=== PATIENT | male | born 1955 | race Hispanic/Latino ===

== ENCOUNTER → 2018-10-18 10:18 | Outpatient (CLI) | payer BC, SELFPAY ==
[2018-10-18 09:52] VITALS: BMI 24.8
--- NOTE | 2018-10-18 10:58 | EKG12_ITS ---
Test Reason : HYPERTENSION Blood Pressure : / mmHG Vent. Rate : 080 BPM Atrial Rate : 080 BPM P-R Int : 154 ms QRS Dur : 138 ms QT Int : 414 ms P-R-T Axes : 047 -26 150 degrees QTc Int : 477 ms Normal sinus rhythm Left bundle branch block Abnormal ECG Confirmed by IAIN STANTON ([id number]), art editor IRWIN SELBY ([id number]) on 10/24/2018 2:28:13 PM Referred By: Sandra Barahona Confirmed By:IAIN STANTON
[2018-10-18 12:48] LABS: Absolute Lymphocyte Count 1.09 X10^3/uL (0.83-4.51); Absolute Neutrophil Count 5.2 X10^3/uL (2.0-7.7); Basophil# 0.05 X10^3/uL; Basophil% 0.7 % (0-1); Eosinophil# 0.45 X10^3/uL; Eosinophils% 6.2 % (0-5); Hematocrit 46.8 % (40-54); Hemoglobin 15.6 g/dL (13.0-16.5); Lymphocyte # 1.09 X10^3/ul (4.0); Mean Corp Hgb Conc 33.3 g/dL (32-36); Mean Corpuscular Hgb 29.1 pg (27.0-32.0); Mean Corpuscular Volume 87.3 fL (80-94); Mean Platelet Vol. 11.7 fl (6.2-12.0); Monocyte# 0.47 X10^3/uL; Monocyte% 6.5 % (0-10); NRBC Flagged by Analyzer 0 % (0-5); Neutrophil # 5.17 X10^3/uL (2.7-7.7); Neutrophil % 71.3 % (47-70); Platelet Count 188 K/mm3 (150-450); RBC Distribution Width CV 14.2 % (11.6-14.6); RBC Distribution Width SD 44.6 fl (35.1-43.9); Red Blood Count 5.36 M/mm3 (4.6-6.2); White Blood Count 7.3 K/mm3 (4.4-11.0)
[2018-10-18 13:19] LABS: Microalbumin,Random Urine 62.4 mg/L (NO RANGE EST.); Microalbumin:Creatinine Ratio 61.8 mg/g CRE (<30 mg/g CRE)
[2018-10-18 13:25] LABS: ALB/GLOB Ratio 0.9 RATIO (0.9-2.4); AST(SGOT) 20 U/L (15-37); Alanine Aminotransfer ALT/SGPT 53 U/L (16-61); Albumin, Serum 3.6 g/dL (3.2-5.0); Alkaline Phosphatase 123 U/L (45-117); Anion Gap 6 (5-15); BUN 10 mg/dL (7-18); BUN/Creat Ratio 11.6 RATIO (10-20); Chloride 105 mmol/L (98-107); Cholesterol 180 mg/dL (200); Creatinine, Serum 0.86 mg/dL (0.70-1.30); EST Glomerular Filtration Rate 95 mL/min (>60); Est Glom Filt Rate - Afr Amer 115 mL/min (>60); Globulin 4.1 g/dL (2.2-4.2); Glucose 148 mg/dL (74-106); High Density Lipoprotein 56 mg/dL; Protein, Total 7.7 g/dL (6.4-8.2); Sodium Level 138 mmol/L (136-145); Triglycerides 94 mg/dL; Very Low Density Lipoprotein 19 mg/dL (5-40)
== END ==
PROVIDERS: Family Provider Internal Medicine; PCP Internal Medicine; Referring Provider Internal Medicine; Visit Provider Internal Medicine
DX: I10 Essential (primary) hypertension (principal); E11.9 Type 2 diabetes mellitus without complications
CPT/HCPCS: 36415; 80053; 80061; 82043; 82570; 85025; 93005

== ENCOUNTER → 2018-10-21 12:45 | Outpatient (CLI) | payer BC, SELFPAY ==
[2018-10-18 09:52] VITALS: BMI 24.8
--- NOTE | 2018-10-21 12:49 | ECHOD_ITS ---
Version 2 Reason For Study: HYPERTENSION Procedure This was a 2D Doppler, Color Flow transthoracic echocardiogram. Exam performed in department. Left Ventricle Normal LV size. Concentric left ventricular hypertrophy. The estimated ejection fraction is 50-55 %. Diastolic function is indeterminate. No regional wall motion abnormalities noted. Right Ventricle Normal RV size. Normal systolic function. Atria Normal left atrium. Normal right atrium. No doppler evidence for ASD. Mitral Valve There is no mitral valve stenosis. No mitral valve insufficiency. Tricuspid Valve There is no tricuspid stenosis. Unable to estimate RV systolic pressure due to inadequate jet, pulmonary artery pressure probably normal. Aortic Valve Trisinus/trileaflet aortic valve. There is no aortic stenosis. No aortic valve insufficiency. Pulmonic Valve There is no pulmonic valvular stenosis. No pulmonic valve insufficiency. Great Vessels Normal aortic root. Pericardium/Pleural No pericardial effusion. MMode/2D Measurements & Calculations LVIDd: 4.5 cm IVSd: 1.2 cm Ao root diam: 3.4 cm LVIDs: 2.9 cm LVPWd: 0.98 cm RVDd: 3.1 cm FS: 34.8 % LAV(MOD-bp): 31.3 ml LA A4 area: 11.8 cm2 LA dimension(2D): 3.0 cm LAV(MOD-bp) Indexed: 18.5 ml/m2 LAV(MOD-sp2): 30.7 ml LAV(MOD-sp4): 29.1 ml RA A4 area: 9.2 cm2 Doppler Measurements & Calculations MV E max antelmo: 69.0 cm/sec Lat Peak E' Antelmo: 3.5 cm/sec Med Peak E' Antelmo: 5.3 cm/sec MV A max antelmo: 112.0 cm/sec E/E' lat: 19.8 E/E' med: 13.0 MV E/A: 0.62 Ao V2 max: 120.6 cm/sec LV V1 max: 92.0 cm/sec PA V2 max: 113.9 cm/sec Ao max P.8 mmHg LV V1 max P.4 mmHg Interpretation Summary The estimated ejection fraction is 50-55 %. Diastolic function is indeterminate. Concentric left ventricular hypertrophy. Ordering Physician: Sandra Barahona Referring Physician: Sandra Barahona Performed By: Selma Garcia, SREE, RVT
== END ==
PROVIDERS: Family Provider Internal Medicine; PCP Internal Medicine; Referring Provider Internal Medicine; Visit Provider Internal Medicine
DX: I10 Essential (primary) hypertension (principal); E11.9 Type 2 diabetes mellitus without complications
CPT/HCPCS: 93306

== ENCOUNTER → 2019-01-11 11:35 | Outpatient (CLI) | payer MEDICARE, BC, SELFPAY ==
[2019-01-11 11:35] VITALS: BMI 25.4
[2019-01-11 14:21] LABS: Anion Gap 5 (5-15); BUN 9 mg/dL (7-18); BUN/Creat Ratio 9.9 RATIO (10-20); Calcium,Total 8.3 mg/dL (8.5-10.1); Chloride 105 mmol/L (98-107); Creatinine, Serum 0.91 mg/dL (0.70-1.30); EST Glomerular Filtration Rate 89 mL/min (>60); Est Glom Filt Rate - Afr Amer 108 mL/min (>60); Glucose 164 mg/dL (74-106); Potassium 3.7 mmol/L (3.5-5.1); Sodium Level 139 mmol/L (136-145)
[2019-01-11 14:28] LABS: Hemoglobin A1c 7.2 % (4.2-6.3)
== END ==
PROVIDERS: Family Provider Internal Medicine; PCP Internal Medicine; Visit Provider Internal Medicine
DX: I10 Essential (primary) hypertension (principal); E11.9 Type 2 diabetes mellitus without complications
CPT/HCPCS: 36415; 80048; 83036

== ENCOUNTER 2019-12-04 14:30 | Inpatient (IN) | payer MEDICARE, BC, SELFPAY ==
[2019-01-11 11:35] VITALS: BMI 25.4
[2019-12-04] VITALS (7 sets, daily range): BP systolic 171–202; BP diastolic 93–122; PULSE 74–100; RESP 14–18; TEMP 35.6–36.7; O2SAT 96–99; BMI 21.4; BMI 22.6; BMI 22.7
--- NOTE | 2019-12-04 15:04 | EKG12_ITS ---
Test Reason : DIZZINESS Blood Pressure : / mmHG Vent. Rate : 072 BPM Atrial Rate : 072 BPM P-R Int : 154 ms QRS Dur : 150 ms QT Int : 442 ms P-R-T Axes : 044 -21 152 degrees QTc Int : 483 ms Normal sinus rhythm Left bundle branch block Abnormal ECG Confirmed by GE HAWLEY, FRANTZ ([id number]), development editor VILMA PALMA ([id number]) on 12/06/2019 1:44:10 PM Referred By: GINGER Confirmed By:FRANTZ CAROLINA MD
--- NOTE | 2019-12-04 15:04 | CT_ITS ---
STUDY: CT BRAIN WITHOUT CONTRAST REASON FOR EXAM: Male, 64 years old. VISION CHANGE and amp; DIZZINESS X2 HOURS -- +DIAB/HTN-RX CONTROLLED RADIATION DOSAGE (If Supplied By Facility): CTDIvol = ( 44.99 ) mGy, DLP = ( 779.24 ) mGycm TECHNIQUE: Transaxial CT imaging of the brain was performed without administration of intravenous contrast material. Individualized dose optimization techniques were used for this CT. COMPARISON: Comparison is made with prior study dated 02/10/2014. FINDINGS: Normal soft tissue structures. Normal calvarium. Normal size ventricles and extra-axial spaces for the patient''s age. There are areas of decreased attenuation within the white matter tracts of the supratentorial brain, consistent with microvascular disease changes. There are small punctate calcifications of the basal ganglia which are seen in the aging brain as a normal variant. There now is evidence of a small lacunar infarct in the left basal ganglion which was not present on prior study. Normal brainstem. Normal cerebellum. There is no intracranial hemorrhage. There are no findings of an acute ischemic infarction. Partial opacification of the inferior aspect of the right maxillary sinus and right sphenoid sinus. CT/Brain/Head without Contrast IMPRESSION: Normal unenhanced CT scan of the brain. Since prior study, there is evidence of a small lacunar infarct in the left basal ganglia. Electronically Signed: Anurag Chavira, at 16:03 EDT , Service support ,
--- NOTE | 2019-12-04 15:06 | ED.DCSUM_ITS ---
History of Present Illness Chief Complaint: Dizziness Informant: Patient Onset: Yesterday Context: Gradual Onset Timing: Intermittent Current Severity: Moderate Maximum Severity: Moderate Narrative: The patient is a 64-year-old male with medical history significant for hypertension and diabetes who does not take any medications the presents to the emergency department with dizziness and blurred vision. Patient states that for the past 2 days, he has had dizziness. He describes it as lightheadedness. He states that his vision is also been intermittently blurred starting yesterday but has not resolved completely. He does not think he is had headache. He denies any difficulty with speech or swallowing. He denies any change in balance. The patient has reported history of diabetes and hypertension, but takes no medications. He also has history of cataract that has affected his vision in the past. He denies any head trauma. He denies any nausea or vomit ing. Prior similar symptoms: Yes Recent Illness/Hospitalization: No Past Medical History - Allergies and Home Meds Allergies/Adverse Reactions: Allergies No Known Allergies Allergy (Verified 01/11/19 11:12) Primary Care Physician: Sandra Barahona MD [Primary Care Provider] - Prior records reviewed: Yes Past Medical History: - - Diabetes, hypertension Smoking Status: Former smoker Review of Systems General: Denies: Chills, Fever, Sweats Eyes: Reports: Blurred Vision - bilaterally. Denies: Visual changes - bilaterally, Diplopia ENT: Denies: Rhinorrhea, Sore throat Cardiovascular: Denies: Chest pain, Palpitations Respiratory: Denies: Dyspnea, Cough, Dyspnea on exertion Gastrointestinal: Denies: Abdominal pain, Nausea, Vomiting, Diarrhea, Melena, Hematochezia Genitourinary: Denies: Dysuria, Hematuria, Frequency Musculoskeletal: Denies: Back pain, Extremity Pain Skin: Denies: Rash, Wounds Neurological: Denies: Headache, Weakness, Numbness Physical Exam Vital Signs/Narrative: Vital Signs Temp Pulse Resp BP Pulse Ox 12/04/19 14:42 181/102 H 12/04/19 14:33 96.0 F L 77 18 194/109 H 99 Inital Vital Signs reviewed: Yes General: Well nourished, Well developed, No Acute Distress Head: Normocephalic, Atraumatic Eyes: Perrl, EOMI ENT: Moist mucous membranes, No rhinorrhea Neck: Supple, Nontender Cardiovascular: Regular rate, Regular rhythm, No murmurs Respiratory: No distress, CTA bilaterally, Chest nontender Abdomen: Soft, Nontender, Nondistended, Normal bowel sounds Back: Nontender, Normal Inspection Extremities: Nontender, No edema Skin: Normal color, No rash Neurological: Alert, Oriented x3, Cranial nerves II-XII grossly intact, Normal Strength, Normal Sensation Psychological: Normal affect, Normal Mood Diagnostic/Tx/Re-eval Clinical Impression(s) from Imaging Studies Brain CT 12/04/19 15:04 IMPRESSION: Normal unenhanced CT scan of the brain. Since prior study, there is evidence of a small lacunar infarct in the left basal ganglia. Electronically Signed: Anurag Coleyval, at 16:03 EDT , Service support , Abnormal Lab Results 12/04/19 12/04/19 15:20 15:20 WBC 7.5 RBC 5.52 Hgb 16.4 Hct 48.8 MCV 88.4 MCH 29.7 MCHC 33.6 RDW Std Deviation 43.4 RDW Coeff of Lacey 13.4 Plt Count 222 MPV 11.7 Immature Gran % (Auto) 0.400 Neut % (Auto) 68.9 Lymph % (Auto) 18.1 L [place] % (Auto) 8.4 Eos % (Auto) 3.5 Baso % (Auto) 0.7 Absolute Neuts (auto) 5.2 Absolute Lymphs (auto) 1.36 Nucleated RBC % 0 Sodium 138 Potassium 4.5 Chloride 103 Carbon Dioxide 28.0 Anion Gap 7 BUN 17 Creatinine 1.00 Estim Creat Clear Calc 58.27 Est GFR (MDRD) Af Amer 96 Est GFR (MDRD) Non-Af 80 BUN/Creatinine Ratio 17.0 Glucose 85 Calcium 8.9 Total Bilirubin 0.60 AST 40 H ALT 40 Alkaline Phosphatase 106 Total Protein 8.4 H Albumin 3.8 Globulin 4.6 H Albumin/Globulin Ratio 0.8 L - Rhythm Strip Rhythm Strip: Sinus Rhythm Rate: 80 Ectopy: None - EKG Initial EKG Interpretation: Sinus Rhythm, No Acute Injury Pattern, LBBB Prior: Unchanged - Medical Decision Making The patient presents with vision difficulty. His eyes are reactive. He does not have a [place] visual field cuts. He was hypertensive on arrival. Metabolic work-up was pursued. EKG demonstrates a left bundle which is unchanged. He has been having the symptoms for 24 hours. Metabolic work-up was relatively unremarkable. Patient underwent CT which shows evidence of a basal ganglier in farct. The patient is not a TPA candidate given the duration of his symptoms. I do feel that he would benefit from admission for stroke work-up. The patient was discussed with the hospitalist. Impression 1. Visual change ED Disposition - Plan for ED Patient: Referrals: Sandra Barahona MD [Primary Care Provider] -
[2019-12-04] MEDS: 0.9% Normal Saline 1,000 ML 1000 ML IV (15:37)
[2019-12-04 15:49] LABS: Absolute Lymphocyte Count 1.36 X10^3/uL (0.83-4.51); Absolute Neutrophil Count 5.2 X10^3/uL (2.0-7.7); Basophil# 0.05 X10^3/uL; Basophil% 0.7 % (0-1); Eosinophil# 0.26 X10^3/uL; Eosinophils% 3.5 % (0-5); Hematocrit 48.8 % (40-54); Hemoglobin 16.4 g/dL (13.0-16.5); Lymphocyte # 1.36 X10^3/ul (4.0); Lymphocyte % 18.1 % (19-41); Mean Corp Hgb Conc 33.6 g/dL (32-36); Mean Corpuscular Hgb 29.7 pg (27.0-32.0); Mean Corpuscular Volume 88.4 fL (80-94); Mean Platelet Vol. 11.7 fl (6.2-12.0); Monocyte# 0.63 X10^3/uL; Monocyte% 8.4 % (0-10); NRBC Flagged by Analyzer 0 % (0-5); Neutrophil # 5.18 X10^3/uL (2.7-7.7); Neutrophil % 68.9 % (47-70); Platelet Count 222 K/mm3 (150-450); RBC Distribution Width CV 13.4 % (11.6-14.6); RBC Distribution Width SD 43.4 fl (35.1-43.9); Red Blood Count 5.52 M/mm3 (4.6-6.2); White Blood Count 7.5 K/mm3 (4.4-11.0)
[2019-12-04 16:11] LABS: ALB/GLOB Ratio 0.8 RATIO (0.9-2.4); AST(SGOT) 40 U/L (15-37); Alanine Aminotransfer ALT/SGPT 40 U/L (16-61); Albumin, Serum 3.8 g/dL (3.2-5.0); Alkaline Phosphatase 106 U/L (45-117); Anion Gap 7 (5-15); BUN 17 mg/dL (7-18); Calcium,Total 8.9 mg/dL (8.5-10.1); Chloride 103 mmol/L (98-107); EST Glomerular Filtration Rate 80 mL/min (>60); Est Glom Filt Rate - Afr Amer 96 mL/min (>60); Estimated Creatinine Clearance 58.27 ml/min; Globulin 4.6 g/dL (2.2-4.2); Glucose 85 mg/dL (74-106); Potassium 4.5 mmol/L (3.5-5.1); Protein, Total 8.4 g/dL (6.4-8.2); Sodium Level 138 mmol/L (136-145)
--- NOTE | 2019-12-04 16:30 | NURSING ---
PCU OBS VISUAL DISTURBANCE [facility]
--- NOTE | 2019-12-04 16:47 | HP.PCM_ITS ---
Problem List (1) Hypertensive urgency Status: Acute (2) Hypertension Status: Chronic (3) Type 2 diabetes mellitus Status: Chronic (4) Cataract Status: Chronic History of Present Illness Date of Admission: 12/04/19 Chief Complaint: Dizziness, blurry vision. The patient is a 64 year old M with past medical history as mentioned above presented to the emergency room because of dizziness and blurry vision. His symptoms started yesterday with dizziness, described as lightheaded, persistent, associated with blurry vision of both eyes, did not relieve since yesterday and no other aggravating or relieving factors. He denied headache, slurred speech, numbness or tingling. He denied focal arm or leg weakness. He denied any gait problems or balance issues. He had a history of hypertension and diabetes but he did not take his medication for a long time. Upon review of his chart, patient saw his PCP back on January, and his blood pressure was not under control, dose of HCTZ was increased and was started on losartan. At that time, his hemoglobin A1c was 7.3% and he was continued on Metformin. Apparently, patient is not taking his medication and he is not compliant. In the emergency department, his blood pressure was high elevated, systolic was up to 194/109. Other vital signs were stable. Routine blood work was unremarkable. LFT was unremarkable. EKG revealed normal sinus rhythm, LBBB which is chronic, no acute changes. CT scan brain was normal but they mentioned that since prior study, there is evidence of small left pontine infarct of the left basal ganglia, age was not documented. He is being admitted for hypertensive urgency, noncompliance and suspected stroke. Past Medical History Past Medical History (Chronic Problems): Chronic Problems (Last Updated 01/11/19 @ 11:13 by Magaly Salinas) Hypertension (Chronic) Type 2 diabetes mellitus (Chronic) Cataract (Chronic) Medical History: Medical History (Last Updated 01/11/19 @ 11:13 by Magaly Salinas) Hypertension (Chronic) I10 Cataract (Chronic) H26.9 Allergies No Known Allergies Allergy (Verified 01/11/19 11:12) Home Medications: Ambulatory Orders Medication Instructions Recorded NK 12/04/19 Surgical History: Surgical History (Last Reviewed 01/11/19 @ 11:13 by Magaly Salinas) No history of previous surgery Surgical History: no surgical history Psychiatric History: No pertinent psych hx Lives: Alone Smoking Status: Former smoker Alcohol: None Drugs: None - *Family History Maternal Family History: Family History (Last Reviewed 12/04/19 @ 16:[address] Cristofer Louie MD) Sister Diabetes History Items: No pertinent history Paternal Family History: Family History (Last Reviewed 12/04/19 @ 16:[address] Cristofer Luoie MD) Sister Diabetes History Items: No pertinent history Review of Systems Constitutional: Denies: Anorexia, Chills, Fever, Weakness Eyes: Reports: Blurred vision. Denies: Double vision, Drainage, Redness HEENT: Denies: Difficulty Hearing, Ear Pain, Eye Pain, Nasal bleeding, Sore Throat Cardiovascular: Reports: Light Headedness. Denies: Chest Pain, Chest Pressure, Palpitations, Syncope Respiratory: Denies: Cough, Pleuritic Pain, Shortness of Breath, Sputum production, Wheezing Gastrointestinal: Denies: Abdominal Pain, Constipation, Diarrhea, Nausea, Vomiting Genitourinary: Denies: Dysuria, Frequency, Hematuria Musculoskeletal: Denies: Arm Pain, Back Pain, Foot Pain Skin: Denies: Dryness, Rash Neurological: Reports: Blurred vision. Denies: Balance problems, Double vision, Change in Speech, Slurred speech, Confusion, Headaches, Incoordination, Numbness Psychiatric: Denies: Anxiety, Depression Endocrine: Denies: Change in Body Habitus, Polydipsia, Polyuria VTE Information - Inpt Only VTE Present on Admission: No VTE Mechan Device Prophylaxis: None VTE Pharm Prophylaxis ordered?: Yes - Physical Exam Vitals/I&O's: Vital Signs Temp Pulse Resp BP Pulse Ox 96.0 F L 77 18 181/102 H 99 12/04/19 14:33 12/04/19 14:33 12/04/19 14:33 12/04/19 14:42 12/04/19 14:33 Oxygen Delivery Method Room Air Weight: 125 lb Body Mass Index (BMI) 21.4 General: Alert, Oriented x3, Cooperative, No apparent distress, - - Frequent blinking. HEENT: Atraumatic, PERRLA, EOMI, Normocephalic Oral: Moist Mucosa, No Gingival or Mucosal Lesions/ Ulcerations Neck: Supple, No JVD, Negative Carotid Bruits, Trachea Midline, Thyroid Normal Size and Texture Lungs: Clear to auscultation, Normal air movement, No rhonchi, No wheeze, No rales Cardiovascular: Regular rate, Regular Rhythm, Normal S1, Normal S2, PMI Normal Abdomen: Bowel Sounds Present, Soft, Non Tender, Non-Distended, No Hepato- splenomegaly Extremities: No clubbing, No cyanosis, No edema Skin: No rashes, No breakdown Lymphatic: No Cervical, Supraclavicular, or Inguinal Adenopathy Neurological: Cranial nerves II-XII grossly intact, Motor Exam 5/5 strength throughout Psych/Mental Status: Normal Affect, Appropriate, Alert and oriented to time, place, person, mood and affect Laboratory Results 12/04/19 15:20: WBC 7.5, RBC 5.52, Hgb 16.4, Hct 48.8, MCV 88.4, MCH 29.7, MCHC 33.6, RDW Std Deviation 43.4, RDW Coeff of Lacey 13.4, Plt Count 222, MPV 11.7, Immature Gran % (Auto) 0.400, Neut % (Auto) 68.9, Lymph % (Auto) 18.1 L, [place] % (Auto) 8.4, Eos % (Auto) 3.5, Baso % (Auto) 0.7, Absolute Neuts (auto) 5.2, Absolute Lymphs (auto) 1.36, Nucleated RBC % 0 12/04/19 15:20: Sodium 138, Potassium 4.5, Chloride 103, Carbon Dioxide 28.0, Anion Gap 7, BUN 17, Creatinine 1.00, Estim Creat Clear Calc 58.27, Est GFR (MDRD) Af Amer 96, Est GFR (MDRD) Non-Af 80, BUN/Creatinine Ratio 17.0, Glucose 85, Calcium 8.9, Total Bilirubin 0.60, AST 40 H, ALT 40, Alkaline Phosphatase 106, Total Protein 8.4 H, Albumin 3.8, Globulin 4.6 H, Albumin/Globulin Ratio 0.8 L Clinical Impression(s) from Imaging Studies Brain CT 12/04/19 15:04 IMPRESSION: Normal unenhanced CT scan of the brain. Since prior study, there is evidence of a small lacunar infarct in the left basal ganglia. Electronically Signed: Anurag Chavira, at 16:03 EDT , Service support , Assessment/Plan All Active Problems (Last Updated 01/11/19 @ 11:13 by Magaly Salinas) Hypertensive urgency (Acute) This is a 64 years old male patient presented to the emergency room because of dizziness and blurry vision, found to have highly elevated blood pressure and also found to have small lacunar infarct of the left basal ganglia with unknown acuity and he is being admitted for evaluation and treatment. #1 hypertensive urgency: Blood pressure was highly elevated in the ED. patient does have a history of hypertension and apparently, he saw his PCP on January,, HCTZ was increased and started on losartan but patient has not been taking his medication. EKG reviewed, LBBB is chronic, no acute changes. Plan: Admit to PCU, cardiac monitoring, troponin x1, start lisinopril and HCTZ, IV hydralazine as needed, gentle IV fluids for hydration, repeat CBC and BMP tomorrow morning, PT OT evaluation and treatment. #2 dizziness/blurry vision/small lacunar infarct of the left basal ganglia: Without known acuity. CT scan brain reviewed. Currently, he has no focal motor deficit. Plan: NIH stroke scale, MRI brain, CTA of the head and neck, 2D echocardiogram, aspirin, Lipitor, lipid profile. #3 hypertension: Blood pressure elevated, plan as above. #4 type 2 diabetes mellitus: Patient was supposed to be on Metformin. Hemoglobin A1c was 7.2% on January,. Plan: Accu-Cheks, insulin sliding scale, hemoglobin A1c. May need to start Metformin after CTA done. #5 DVT prophylaxis: Subcu Lovenox. This note was generated with Sharetribe[employer] software. It may contain incorrect words, spelling, and punctuation that were not noted in checking the note before signing. Inpatient E&M: 46298 Init Hosp L3
--- NOTE | 2019-12-04 17:01 | NURSING ---
124 [facility] HYPERTENSIVE [facility], VISION CHANGES
[2019-12-04] MEDS: hydrALAZINE 20 MG/ML Vial 10 MG IV (17:13)
[2019-12-04] MEDS: Lisinopril 10 MG Tablet PO (18:54)
--- NOTE | 2019-12-04 18:58 | MRI_ITS ---
STUDY: MRI BRAIN WITHOUT CONTRAST REASON FOR EXAM: Male, 64 years old. small lacunar infarct,dizzy, blurred vision, constant blinking eyes TECHNIQUE: Standardized multiplanar fat and water weighted pulse sequences were obtained. COMPARISON: CTA same day FINDINGS: Normal size of the ventricles and extra-axial spaces for the patient''s age. There are a limited number of small white matter hyperintensities, distributed throughout the deep white matter tracts of the cerebral hemispheres, consistent with mild chronic white matter ischemic changes. Remote infarct in the left basal ganglia. Normal thalami. There is no extra-axial fluid accumulation. Normal flow voids within the major intracranial circulation suggesting patency by spin echo criteria. Normal sella turcica, pituitary gland, infundibular stalk, optic chiasm and hypothalamus. Normal tectal plate and pineal gland. Normal midbrain, la and medulla. Normal cerebellum. Normal basal cisterns. Normal bilateral temporal bones. Normal bilateral internal auditory canals. Right lens replacement. Right sphenoid sinus disease. Normal calvarium and skull base. Normal visualized soft tissue structures. Normal visualized upper cervical spine. MRI/Brain without Contrast IMPRESSION: No evidence of acute infarct or hemorrhage. Electronically Signed: Dio Foster MD at 22:18 EDT Tel , Service support ,
--- NOTE | 2019-12-04 18:58 | ECHOD_ITS ---
Reason For Study: TIA/CVA Procedure This was a 2D Doppler, Color Flow transthoracic echocardiogram. Contrast injection was performed. Exam performed portable in patient room. Left Ventricle Normal LV size. Mild concentric left ventricular hypertrophy. Left ventricular systolic function is lower limits of normal. The estimated ejection fraction is 50 %. Diastolic function is indeterminate. No regional wall motion abnormalities noted. Right Ventricle Normal RV size. Normal systolic function. Atria Normal left atrium. Normal right atrium. No doppler evidence for ASD. Bubble contrast study negative for right to left interatrial shunt. Mitral Valve There is no mitral annular calcification. Normal mitral valve. Mild (1+) mitral valve insufficiency. Tricuspid Valve Normal tricuspid valve. Mild tricuspid valve insufficiency. Right ventricular systolic pressure estimated to be 23 mmHg. Aortic Valve Trisinus/trileaflet aortic valve. Normal aortic valve. Trivial aortic valve insufficiency. Pulmonic Valve The pulmonic valve is not well visualized. Great Vessels Normal sized aortic root. Pericardium/Pleural No pericardial effusion. Medication Performed a rapid injection of agitated mix of 9 cc saline and 1cc air to assess for atrial septal defect. MMode/2D Measurements & Calculations LVIDd: 3.4 cm IVSd: 1.3 cm Ao root diam: 3.5 cm LVIDs: 2.2 cm LVPWd: 1.3 cm LA dimension: 3.4 cm RVDd: 3.0 cm FS: 34.6 % LAV(MOD-bp): 35.0 ml LA A4 area: 13.6 cm2 RA A4 area: 10.6 cm2 LAV(MOD-bp) Indexed: 21.4 ml/m2 LAV(MOD-sp2): 37.2 ml LAV(MOD-sp4): 32.4 ml Time Measurements MV dec time: 0.32 sec Doppler Measurements & Calculations MV E max antelmo: 58.8 cm/sec Lat Peak E' Antelmo: 5.9 cm/sec Med Peak E' Antelmo: 2.9 cm/sec MV A max antelmo: 98.7 cm/sec E/E' lat: 10.0 E/E' med: 20.2 MV E/A: 0.60 MV V2 max: 107.9 cm/sec MV P1/2t max antelmo: 72.2 cm/sec Ao V2 max: 104.2 cm/sec MV max P.7 mmHg MV P1/2t: 129.6 msec Ao max P.3 mmHg MV V2 mean: 53.5 cm/sec MV dec slope: 163.3 cm/sec2 MV mean P.4 mmHg MV V2 VTI: 32.3 cm MVA(P1/2t): 1.7 cm2 LV V1 max: 88.4 cm/sec PA V2 max: 97.3 cm/sec PI dec slope: 112.5 cm/sec2 LV V1 max P.1 mmHg TR max antelmo: 224.0 cm/sec TR max P.1 mmHg Interpretation Summary Left ventricular systolic function is lower limits of normal. The estimated ejection fraction is 50 %. Mild concentric left ventricular hypertrophy. Mild (1+) mitral valve insufficiency. Mild tricuspid valve insufficiency. Trivial aortic valve insufficiency. Right ventricular systolic pressure estimated to be 23 mmHg. Bubble contrast study negative for right to left interatrial shunt. Diastolic function is indeterminate. Ordering Physician: Cristofer Louie Referring Physician: Sandra Barahona Performed By: Kofi Harrison RCS
[2019-12-04] MEDS: 0.9% Normal Saline 1,000 ML 75 ML IV (19:15)
[2019-12-04 20:22] LABS: Cholesterol 246 mg/dL (200); High Density Lipoprotein 63 mg/dL; Triglycerides 137 mg/dL; Very Low Density Lipoprotein 27 mg/dL (5-40)
[2019-12-04 21:12] LABS: Hemoglobin A1c 6.2 % (3.8-5.6)
[2019-12-04] MEDS: Atorvastatin Calcium 80 MG Tablet PO (21:45)
--- NOTE | 2019-12-04 21:50 | CT_ITS ---
STUDY: CTA HEAD AND NECK WITH CONTRAST REASON FOR EXAM: Male, 64 years old. HYPPERTENSION. DIZZY, BLURRED VISION, AND LIGHTNEADNESS RADIATION DOSAGE (If Supplied By Facility): CTDIvol = ( 21.09 ) mGy, DLP = ( 709.63 ) mGycm TECHNIQUE: CT angiography was performed with a multi-detector CT scanner. Data acquisition was obtained from the skull base through the vertex following intravenous administration of IV 100mL [id number]-370. MIP images were reconstructed from the axial data set. Post-processing of the angiographic images was performed, with multiplanar reformation and 3D reconstruction. Individualized dose optimization techniques were used for this CT. COMPARISON: No relevant priors. FINDINGS: Normal bilateral petrous carotid arteries. Mild calcific plaquing of the right cavernous carotid artery with a normal supraclinoid bifurcation. Mild calcific plaquing of the left cavernous carotid artery with a normal supraclinoid bifurcation. Normal right A1 segments of the anterior cerebral artery. Normal left A1 segments of the anterior cerebral artery. Normal intact anterior communicating artery (ACOM). Normal bilateral A2 segments of the anterior cerebral arteries. Normal right M1 and M2 segments of the middle cerebral arteries, with a normal M1 bifurcation. Normal left M1 and M2 segments of the middle cerebral arteries, with a normal M1 bifurcation. Bilateral posterior containing arteries not visualized consistent with normal variant Normal bilateral vertebral arteries. Normal basilar artery with a normal basilar bifurcation. The visualized bilateral superior cerebellar (SCA) arteries are normal. Normal bilateral P1, P2 and visualized P3 segments of the posterior cerebral arteries. There is no demonstrated aneurysm of the [place]. There is no demonstrated abnormality of the visualized brain. AORTIC ARCH: Normal visualized aortic arch. Normal origins of the brachiocephalic, left common carotid, and left subclavian arteries. RIGHT CAROTID ARTERIES: Normal right common carotid artery (CCA). Normal right common carotid bulb. Normal origin of the right internal carotid (ICA) artery without a hemodynamically significant stenosis. Normal visualized cervical portion of the right internal carotid artery. Normal origin of the right external carotid artery (ECA). LEFT CAROTID ARTERIES: Normal left common carotid artery (CCA). Minor calcific plaquing of the left common carotid bulb. Normal origin of the left internal carotid (ICA) artery without a hemodynamically significant stenosis. Normal visualized cervical portion of the left internal carotid artery. Normal origin of the left external carotid artery (ECA). VERTEBRAL ARTERIES: The right vertebral is dominant and normal caliber. The left vertebral is smaller and terminates in PICA consistent with normal variant. CT/CTA Head AND Neck W/ Contrast IMPRESSION: Mild atherosclerotic disease. No evidence for hemodynamically significant stenosis or vascular occlusion Electronically Signed: Alfa Angulo MD at 22:08 EDT , Service support ,
[2019-12-04] MEDS: Acetaminophen 325 MG Tablet 650 MG PO (22:31)
[2019-12-04] MEDS: Zolpidem Tartrate 5 MG Tablet PO (23:51)
[2019-12-04] MEDS: Glycerin/Hypromellose/PEG400 15 ml Bottle 2 DRP EACH EYE (23:51)
[2019-12-05] VITALS (7 sets, daily range): BP systolic 131–164; BP diastolic 70–93; PULSE 67–76; RESP 16–18; TEMP 36.6–37.2; O2SAT 94–97
[2019-12-05] MEDS: Aspirin 81 MG TAB.CHEW PO (07:59)
[2019-12-05] MEDS: Lisinopril 20 MG Tablet PO (09:54)
[2019-12-05] MEDS: Enoxaparin 40 MG/0.4 ML Syringe SC (09:54)
[2019-12-05] MEDS: hydroCHLOROthiazide 12.5mg 12.5 MG PO (09:54)
--- NOTE | 2019-12-05 10:53 | CASEMGMT ---
AGATHA BARAJAS assessment: Face to Face with patient for initial transition planning/care coordination assessment. AGATHA BARAJAS introduced self and role at [facility], pt voices understanding and consents to assessment at this time. Pt is sitting up in bed in no distress at this time and easily gets up to sit on side of bed with no concerns at this time. Pt is A/Ox4 at this time and answers all questions appropriately at this time. Pt continuously is blinking eyes while this AGATHA BARAJAS in room. Care providers, pharmacy, and demographics verified at this time. 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 Presentation: Pt about 2 hours ago was dizzy and having blurred vision. Now dizziness is gone. Having blurred vision bilaterally. Denies weakness, slurred speech, no facial droop noted in triage Admitting dx: Hypertensive urgency, vision changes PCP: [place] Specialists: Pt states no current specialists. Preferred [facility]acy: [facility] Insurance: [employer] A/B, [employer] Prescription Benefit: Yes Living Will/HPOA: Pt states does not have LW/HPOA and declines AD info at this time. LNOK: None Living Arrangements: Pt states lives alone in a home and states no concerns at home at this time. Pt states is independent with ADL's and has been independent. Transportation: Pt states drives self and states no transportation concerns at this time. Pt states has not been driving lately d/t blurred vision. DME/HHC: Pt states has grab bars in shower and states no need for any further DME at this time. Pt states no hx of HHC or SNF in the past. Pt states no concerns with going home at time of discharge. Pt is retired. Pt states does not smoke cigarettes or drink ETOH. Pt states no further concerns/needs at this time. CM to follow for any further discharge planning/needs. Advised pt to ask for CM if any further questions/concerns/needs arise, voices understanding. Pt Goal: [place] AGATHA BARAJAS
--- NOTE | 2019-12-05 12:00 | DCINST_ITS ---
- Discharge Diagnoses Current Active Problems: Current Active and Chronic Problems (Last Updated 12/04/19 @ 16:[address] Cristofer Louie MD) Hypertensive urgency (Acute) Hypertension (Chronic) Type 2 diabetes mellitus (Chronic) Cataract (Chronic) You will use the following diet at home:: Cardiac Discharge Activity: Return to Normal Activity Call your doctor if you observe: Shortness of breath, Dizziness, Fainting spells, Chest pain Allergies/Adverse Reactions: Allergies No Known Allergies Allergy (Verified 01/11/19 11:12) Medications to take at Discharge Amlodipine [Norvasc] 5 mg PO DAILY #60 tab 12/05/19 Aspirin [Aspirin, Baby] 81 mg PO DAILY@0800 #60 tab.chew 12/05/19 Atorvastatin Calcium [Lipitor] 40 mg PO QHS #60 tab 12/05/19 Losartan/Hydrochlorothiazide [Losartan-Hctz 50-12.5 mg Tab] 1 ea PO DAILY #60 tab 12/05/19 metFORMIN HCl [Glucophage] 500 mg PO BIDCM #120 tab 12/05/19 The following prescriptions were given: Aspirin [Aspirin, Baby] 81 mg PO DAILY@0800 #60 tab.chew Transmission Status: Pending to [facility] #30 metFORMIN HCl [Glucophage] 500 mg PO BIDCM #120 tab Transmission Status: Pending to [facility] #[facility] Atorvastatin Calcium [Lipitor] 40 mg PO QHS #60 tab Transmission Status: Pending to [facility] #30 Losartan/Hydrochlorothiazide [Losartan-Hctz 50-12.5 mg Tab] 1 ea PO DAILY #60 tab Transmission Status: Pending to [facility] Amlodipine [Norvasc] 5 mg PO DAILY #60 tab Transmission Status: Pending to [facility] Primary Care Physician: Sandra Barahona MD [Primary Care Provider] - Please follow up with your Primary Care Physician in: 1 Week Test Results: Test results from this visit will be discussed in further detail at your follow- up appointment, if applicable. Please Follow Up With: De Andrews MD When: As scheduled, Proposed Discharge Date: 12/05/19
--- NOTE | 2019-12-05 13:58 | DS.PCM_ITS ---
<Fina Steele TAXIMETER REPAIRER - Last Filed: 12/05/19 14:05> Discharge Date and Diagnosis - Problem List Patient Problems: Active and Suspected Problems (Last Updated 12/04/19 @ 16:[address] Cristofer Louie MD) Hypertensive urgency (Acute) Date of Admission: 12/04/19 Date of Discharge: 12/05/19 - Primary Discharge Diagnosis Acute Problems: Active Problems (Last Updated 12/04/19 @ 16:[address] Cristofer Louie MD) 1. Hypertensive urgency 2. Blurred vision 3. Old lacunar infarct in the left basal ganglia 4. Type 2 diabetes mellitus 5. Hyperlipidemia 6. Noncompliance - Secondary Discharge Diagnosis Chronic Problems: Chronic Problems (Last Updated 12/04/19 @ 16:[address] Cristofer Louie MD) Hypertension (Chronic) Type 2 diabetes mellitus (Chronic) Cataract (Chronic) Hospital Course and Treatment Imaging Results: Diagnostic Data Brain CT 12/04/19 15:04 IMPRESSION: Normal unenhanced CT scan of the brain. Since prior study, there is evidence of a small lacunar infarct in the left basal ganglia. Electronically Signed: Anurag Chavira at 16:03 EDT , Service support , Brain MRI 12/04/19 18:58 IMPRESSION: No evidence of acute infarct or hemorrhage. Electronically Signed: Dio Foster MD at 22:18 EDT Tel , Service support , Head/Neck CTA 12/04/19 21:50 IMPRESSION: Mild atherosclerotic disease. No evidence for hemodynamically significant stenosis or vascular occlusion Electronically Signed: Alfa Angulo MD at 22:08 EDT , Service support , Operations: None Procedures: 2-D Echocardiogram Summary of Care Provided: The patient is a 64 year old M admitted 12/04/2019 due to dizziness and blurred vision. 1. Hypertensive urgency-due to noncompliance with previously prescribed blood pressure regimen. Initiated on previous regimen of amlodipine, losartan/hydrochlorothiazide. Patient will need close follow-up with primary care physician for further blood pressure monitoring. Echocardiogram October 2018 demonstrated an EF of 50 to 55%. Echocardiogram repeated during admission however patient anxious to return home and did not want to wait for results. Follow-up with PCP within 1 week. 2. Blurred vision-MRI of brain without acute infarct. Patient has chronic cataracts. No evidence of acute conjunctivitis. Patient able to state appropriate images and held up numbers, no double vision. Eye appointment set up for this at [facility]. 3. Old lacunar infarct in the left basal ganglia-MRI of brain demonstrates remote infarct in the left basal ganglia. No acute infarct. Continue aspirin, statin at discharge. 4. Type 2 diabetes mellitus-previously on Metformin 500 mg twice a day which he has not been taking. New Rx at discharge. 5. Hyperlipidemia-initiated on statin. 6. Noncompliance-patient has not been taking any of his previously prescribed medications. Reordered previous blood pressure and diabetes regimen that patient was prescribed by primary care physician. Patient seen and examined prior to discharge. Physical assessment as noted below. Patient is stable for discharge with follow up recommendations as noted above. This patient was seen by LILY Felix under the supervision of Dr. Marquez. Patient Problems: Active and Suspected Problems (Last Updated 12/04/19 @ 16:[address] Cristofer Louie MD) Hypertensive urgency (Acute) - Physical Exam Vitals/I&O's: Vital Signs Temp Pulse Resp BP Pulse Ox 98.9 F 91 18 129/70 H 98 12/05/19 13:53 12/05/19 13:53 12/05/19 13:53 12/05/19 13:53 12/05/19 13:53 Oxygen Delivery Method Room Air Weight: 132 lb 3.2 oz Body Mass Index (BMI) 22.6 Intake and Output for Last 24 Hours 12/03/19 12/04/19 12/05/19 23:59 23:59 23:59 Intake Total 1000 / 1000 750 / 750 Balance 1000 / 1000 750 / 750 General: Alert, Oriented x3, Cooperative HEENT: Atraumatic, PERRLA, EOMI, Normocephalic Neck: Supple, No JVD, Negative Carotid Bruits Lungs: Clear to auscultation, Normal air movement Cardiovascular: Regular rate, No murmurs Abdomen: Bowel Sounds Present, Soft, Non Tender, Non-Distended Extremities: No clubbing, No cyanosis, No edema, Capillary Refill Less than 3 Seconds Skin: No rashes, No breakdown Musculoskeletal: No Tenderness to Palpation of Joints or Extremities Neurological: Cranial nerves II-XII grossly intact, Neuro grossly intact Psych/Mental Status: Normal Affect, Appropriate Laboratory Results 12/04/19 15:20: WBC 7.5, RBC 5.52, Hgb 16.4, Hct 48.8, MCV 88.4, MCH 29.7, MCHC 33.6, RDW Std Deviation 43.4, RDW Coeff of Lacey 13.4, Plt Count 222, MPV 11.7, Immature Gran % (Auto) 0.400, Neut % (Auto) 68.9, Lymph % (Auto) 18.1 L, Starr % (Auto) 8.4, Eos % (Auto) 3.5, Baso % (Auto) 0.7, Absolute Neuts (auto) 5.2, Absolute Lymphs (auto) 1.36, Nucleated RBC % 0 12/04/19 15:20: Sodium 138, Potassium 4.5, Chloride 103, Carbon Dioxide 28.0, Anion Gap 7, BUN 17, Creatinine 1.00, Estim Creat Clear Calc 58.27, Est GFR (MDRD) Af Amer 96, Est GFR (MDRD) Non-Af 80, BUN/Creatinine Ratio 17.0, Glucose 85, Calcium 8.9, Total Bilirubin 0.60, AST 40 H, ALT 40, Alkaline Phosphatase 106, Total Protein 8.4 H, Albumin 3.8, Globulin 4.6 H, Albumin/Globulin Ratio 0.8 L 12/04/19 15:20: Triglycerides 137, Cholesterol 246 H, LDL Cholesterol 156 H, VL DL Cholesterol 27, HDL Cholesterol 63 12/04/19 15:20: Hemoglobin A1c 6.2 H Current Medications Acetaminophen (Acetaminophen 325 Mg Tablet) 650 mg PO Q6H PRN PRN PRN Reason: Pain Score 1-10/Temp > 100.7 F Last Admin: 12/04/19 22:31 Dose: 650 mg Documented by: Aspirin (Aspirin 81 Mg Tab.Chew) 81 mg PO DAILY@0800 [facility] Last Admin: 12/05/19 07:59 Dose: 81 mg Documented by: Atorvastatin Calcium (Atorvastatin Calcium 80 Mg Tablet) 80 mg PO QHS [facility] Last Admin: 12/04/19 21:45 Dose: 80 mg Documented by: Enoxaparin Sodium (Enoxaparin 40 Mg/0.4 Ml Syringe) 40 mg SC DAILY [facility] Last Admin: 12/05/19 09:54 Dose: 40 mg Documented by: Hydralazine HCl (Hydralazine 20 Mg/Ml Vial) 10 mg IV Q4H PRN PRN PRN Reason: for SBP>170 Hydrochlorothiazide (Hydrochlorothiazide 12.5mg) 12.5 mg PO DAILY [facility] Last Admin: 12/05/19 09:54 Dose: 12.5 mg Documented by: Lisinopril (Lisinopril 20 Mg Tablet) 20 mg PO DAILY [facility] Last Admin: 12/05/19 09:54 Dose: 20 mg Documented by: Ondansetron HCl (Ondansetron 4 Mg/2 Ml Vial) 4 mg IV Q8H PRN PRN PRN Reason: NAUSEA/VOMITING Senna/Docusate Sodium (Senna/Docusate Sodium 1 Tablet) 2 tablet PO BID PRN PRN PRN Reason: Constipation Sodium Chloride (0.9% Saline Lock 10 Ml Syringe) 10 - 40 ml IV UD PRN PRN Reason: SALINE FLUSH Zolpidem Tartrate (Zolpidem Tartrate 5 Mg Tablet) 5 mg PO QHS PRN PRN PRN Reason: INSOMNIA Last Admin: 12/04/19 23:51 Dose: 5 mg Documented by: Discharge Diet: Low fat/ Low Cholesterol Discharge Activity: Return to Normal Activity Call your doctor if you observe: Shortness of breath, Dizziness, Fainting spells, Chest pain Home Medications: Medications to take at Discharge Amlodipine [Norvasc] 5 mg PO DAILY #60 tab 12/05/19 Aspirin [Aspirin, Baby] 81 mg PO DAILY@0800 #60 tab.chew 12/05/19 Atorvastatin Calcium [Lipitor] 40 mg PO QHS #60 tab 12/05/19 Losartan/Hydrochlorothiazide [Losartan-Hctz 50-12.5 mg Tab] 1 ea PO DAILY #60 tab 12/05/19 metFORMIN HCl [Glucophage] 500 mg PO BIDCM #120 tab 12/05/19 Following Prescriptions Were Given to Patient: Aspirin [Aspirin, Baby] 81 mg PO DAILY@0800 #60 tab.chew Transmission Status: Received by [facility] #30 metFORMIN HCl [Glucophage] 500 mg PO BIDCM #120 tab Transmission Status: Received by [facility] #30 Atorvastatin Calcium [Lipitor] 40 mg PO QHS #60 tab Transmission Status: Received by [facility]30 Losartan/Hydrochlorothiazide [Losartan-Hctz 50-12.5 mg Tab] 1 ea PO DAILY #60 tab Transmission Status: Received by [facility]30 Amlodipine [Norvasc] 5 mg PO DAILY #60 tab Transmission Status: Received by [facility] #30 Primary Care Physician: Sandra Barahona MD [Primary Care Provider] - Please follow up with your Primary Care Physician in: 1 Week Please Follow Up With: De Andrews MD When: As scheduled, Disposition: Home Minutes spent on discharge:: 35 Patient Condition:: Stable Medical Necessity - Tobacco Use Smoking Status: Former smoker Tobacco Use: Cigarettes Meaningful Use Info Meaningful Use Diagnoses (Choose all that apply): None applicable <Dain Marquez - Last Filed: 12/05/19 14:20> Discharge Date and Diagnosis - Primary Discharge Diagnosis Acute Problems: Active Problems (Last Updated 12/04/19 @ 16:[address] Cristofer Louie MD) Hypertensive urgency (Acute) - Secondary Discharge Diagnosis Chronic Problems: Chronic Problems (Last Updated 12/04/19 @ 16:[address] Cristofer Louie MD) Hypertension (Chronic) Type 2 diabetes mellitus (Chronic) Cataract (Chronic) Hospital Course and Treatment Summary of Care Provided: The patient is a 64 year old M [] - Physical Exam Vitals/I&O's: Vital Signs Temp Pulse Resp BP Pulse Ox 98.9 F 91 18 129/70 H 98 12/05/19 13:53 12/05/19 13:53 12/05/19 13:53 12/05/19 13:53 12/05/19 13:53 Oxygen Delivery Method Room Air Weight: 132 lb 3.2 oz Body Mass Index (BMI) 22.6 Intake and Output for Last 24 Hours 12/03/19 12/04/19 12/05/19 23:59 23:59 23:59 Intake Total 1000 / 1000 750 / 750 Balance 1000 / 1000 750 / 750 Laboratory Results 12/04/19 15:20: WBC 7.5, RBC 5.52, Hgb 16.4, Hct 48.8, MCV 88.4, MCH 29.7, MCHC 33.6, RDW Std Deviation 43.4, RDW Coeff of [place] 13.4, Plt Count 222, MPV 11.7, Immature Gran % (Auto) 0.400, Neut % (Auto) 68.9, Lymph % (Auto) 18.1 L, Starr % (Auto) 8.4, Eos % (Auto) 3.5, Baso % (Auto) 0.7, Absolute Neuts (auto) 5.2, Absolute Lymphs (auto) 1.36, Nucleated RBC % 0 12/04/19 15:20: Sodium 138, Potassium 4.5, Chloride 103, Carbon Dioxide 28.0, Anion Gap 7, BUN 17, Creatinine 1.00, Estim Creat Clear Calc 58.27, Est GFR (MDRD) Af Amer 96, Est GFR (MDRD) Non-Af 80, BUN/Creatinine Ratio 17.0, Glucose 85, Calcium 8.9, Total Bilirubin 0.60, AST 40 H, ALT 40, Alkaline Phosphatase 106, Total Protein 8.4 H, Albumin 3.8, Globulin 4.6 H, Albumin/Globulin Ratio 0.8 L 12/04/19 15:20: Triglycerides 137, Cholesterol 246 H, LDL Cholesterol 156 H, VLDL Cholesterol 27, HDL Cholesterol 63 12/04/19 15:20: Hemoglobin A1c 6.2 H Addendum: Dr. Marquez I personally examined the patient and reviewed the chart. I agree with the above. 64-year-old male was told that he will had hypertension and was being treated for back in 2019 however he was noncompliant with medications and had not been taking them for quite some time. He presents to the hospital because of a headache as well as worsening of blurry vision. He was found to have a systolic blood pressure greater than 200 and was started on lisinopril and hydrochlorothiazide. He is feeling better today with his blood pressures in the 160s systolic however he still has some vision issues and has an appointment set up with ophthalmology on Thursday. He was getting anxious about being in the hospital and wanted to go home he did not want a wait for the echo results and he was discharged home after he expressed understanding the risk benefits of going home today. I did discuss with him the need to come back to the hospital if symptoms worsen. Inpatient E&M: [id number] Disch Hosp
== END 2019-12-05 14:11 | disposition home or self-care (01) | DRG 305 ==
LOC: ED 15:37 → PCU 19:08 → ED 12-05 09:39 → PCU 12-05 09:39
PROVIDERS: Admitting Provider Hospitalist; Emergency Provider Emergency Medicine; PCP Internal Medicine; Visit Provider Family Medicine
DX: I16.0 Hypertensive urgency (principal); H53.8 Other visual disturbances; E78.5 Hyperlipidemia, unspecified; I10 Essential (primary) hypertension; E11.36 Type 2 diabetes mellitus with diabetic cataract; I44.7 Left bundle-branch block, unspecified; Z23 Encounter for immunization; Z86.73 Personal history of transient ischemic attack (TIA), and cerebral infarction without residual deficits; Z79.82 Long term (current) use of aspirin; Z79.84 Long term (current) use of oral hypoglycemic drugs; Z79.899 Other long term (current) drug therapy; Z83.3 Family history of diabetes mellitus; Z91.14 Patient's other noncompliance with medication regimen
CPT/HCPCS: 70450; 70496; 70498; 70551; 80053; 80061; 83036; 85025; 93005; 93306; 97162; 97166; 99285; G0008; J7030; Q9967; 90686; A4216

== ENCOUNTER 2020-01-11 17:15 | Emergency (ER) | payer MEDICARE, BC, SELFPAY ==
[2020-01-11 17:16] VITALS: BP 195/114; PULSE 70; RESP 14; TEMP 36.5; O2SAT 95; BMI 22.6
--- NOTE | 2020-01-11 17:21 | ED.DCSUM_ITS ---
History of Present Illness Chief Complaint: Chest Pain Informant: Patient Narrative: 64-year-old male presents for intermittent chest pain of at least 4 months duration. He states that it is present when he wakes up and is intermittent throughout the day. He is unsure of what it goes away. Nothing seems to make it better or worse. It does not radiate. No dyspnea. No change in exercise tolerance. He has a history of diabetes as well as hypertension. He is noncompliant with his hypertensive medicines because he does not like the way it makes him feel. He tells me has not tried other medications. I reviewed his last primary care physician's appointment with Dr. Barahona and she notes that he is noncompliant because he states it makes his questionable hemorrhoidal disease worse. Patient was recently admitted into the hospital for hypertensive urgency. Patient states that he is not interested in managing his blood pressure today. While in the hospital and he underwent MRI and echocardiogram. Known left bundle branch block. Recent echocardiogram results as follows: Left ventricular systolic function is lower limits of normal. The estimated ejection fraction is 50 %. Mild concentric left ventricular hypertrophy. Mild (1+) mitral valve insufficiency. Mild tricuspid valve insufficiency. Trivial aortic valve insufficiency. Right ventricular systolic pressure estimated to be 23 mmHg. Bubble contrast study negative for right to left interatrial shunt. Diastolic function is indeterminate. Patient states that nothing today is different than it has been for the past several months. He felt that he should get it checked out today. - Past Medical History (1) Hypertension Status: Chronic (2) Type 2 diabetes mellitus Status: Chronic Past Medical History - Allergies and Home Meds Allergies/Adverse Reactions: Allergies No Known Allergies Allergy (Verified 01/11/20 17:16) Primary Care Physician: Sandra Barahona MD [Primary Care Provider] - As soon as possible Surgical History: no surgical history Smoking Status: Former smoker Drugs: None - Family History Maternal Family History: Family History (Last Reviewed 12/04/19 @ 16:[address] Cristofer Louie MD) Sister Diabetes Family History: Reports: No pertinent history Paternal Family History: Family History (Last Reviewed 12/04/19 @ 16:[address] Cristofer Louie MD) Sister Diabetes Family History: Reports: No pertinent history Review of Systems General: Denies: Chills, Fever, Sweats Eyes: Denies: Visual changes - bilaterally, Diplopia ENT: Denies: Rhinorrhea, Sore throat Cardiovascular: Reports: Chest pain. Denies: Palpitations Respiratory: Denies: Dyspnea, Cough, Dyspnea on exertion Gastrointestinal: Denies: Abdominal pain, Nausea, Vomiting, Diarrhea, Melena, Hematochezia Genitourinary: Denies: Dysuria, Hematuria, Frequency Musculoskeletal: Denies: Back pain, Extremity Pain Skin: Denies: Rash, Wounds Neurological: Denies: Headache, Weakness, Numbness Physical Exam Vital Signs/Narrative: Vital Signs Temp Pulse Resp Pulse Ox 01/11/20 17:16 97.7 F L 70 14 95 Inital Vital Signs reviewed: Yes General: Well nourished, Well developed, No Acute Distress Head: Normocephalic, Atraumatic Eyes: Perrl, EOMI ENT: Moist mucous membranes, No rhinorrhea Neck: Supple, Nontender Cardiovascular: Regular rate, Regular rhythm, No murmurs Respiratory: No distress, CTA bilaterally, Chest nontender Abdomen: Soft, Nontender, Nondistended, Normal bowel sounds Back: Nontender, Normal Inspection Extremities: Nontender, No edema Skin: Normal color, No rash Neurological: Alert, Oriented x3, Cranial nerves II-XII grossly intact, Normal Strength, Normal Sensation Psychological: Normal affect, Normal Mood Diagnostic/Tx/Re-eval Clinical Impression(s) from Imaging Studies Chest X-Ray 01/11/20 17:45 IMPRESSION: Shallow inspiration without other acute cardiopulmonary findings. Negative for consolidation, focal atelectasis, cardiomegaly or pleural effusion. Electronically Signed: Roxy Livingston MD at 18:23 EST , Service support , Laboratory Last Values WBC 7.3 K/mm3 (4.4-11.0) 01/11/20 17:02 RBC 5.45 M/mm3 (4.6-6.2) 01/11/20 17:02 Hgb 15.9 g/dL (13.0-16.5) 01/11/20 17:02 Hct 48.5 % (40-54) 01/11/20 17:02 MCV 89.0 fL (80-94) 01/11/20 17:02 MCH 29.2 pg (27.0-32.0) 01/11/20 17:02 MCHC 32.8 g/dL (32-36) 01/11/20 17:02 RDW Std Deviation 42.7 fl (35.1-43.9) 01/11/20 17:02 RDW Coeff of Lacey 13.1 % (11.6-14.6) 01/11/20 17:02 Plt Count 189 K/mm3 (150-450) 01/11/20 17:02 MPV 11.8 fl (6.2-12.0) 01/11/20 17:02 Immature Gran % (Auto) 0.100 % (0.0-0.9) 01/11/20 17:02 Neut % (Auto) 68.2 % (47-70) 01/11/20 17:02 Lymph % (Auto) 19.4 % (19-41) 01/11/20 17:02 [place] % (Auto) 8.9 % (0-10) 01/11/20 17:02 Eos % (Auto) 2.9 % (0-5) 01/11/20 17:02 Baso % (Auto) 0.5 % (0-1) 01/11/20 17:02 Absolute Neuts (auto) 5.0 X10^3/uL (2.0-7.7) 01/11/20 17:02 Absolute Lymphs (auto) 1.41 X10^3/uL (0.83-4.51) 01/11/20 17:02 Nucleated RBC % 0 % (0-5) 01/11/20 17:02 Sodium 141 mmol/L (136-145) 01/11/20 17:02 Potassium 4.0 mmol/L (3.5-5.1) 01/11/20 17:02 Chloride 105 mmol/L (98-107) 01/11/20 17:02 Carbon Dioxide 31.0 mmol/L (21.0-32.0) 01/11/20 17:02 Anion Gap 5 (5-15) 01/11/20 17:02 BUN 14 mg/dL (7-18) 01/11/20 17:02 Creatinine 0.96 mg/dL (0.70-1.30) 01/11/20 17:02 Estim Creat Clear Calc 63.38 ml/min 01/11/20 17:02 Est GFR (MDRD) Af Amer 100 mL/min (>60) 01/11/20 17:02 Est GFR (MDRD) Non-Af 83 mL/min (>60) 01/11/20 17:02 BUN/Creatinine Ratio 14.5 RATIO (10-20) 01/11/20 17:02 Glucose 97 mg/dL (74-106) 01/11/20 17:02 Calcium 9.0 mg/dL (8.5-10.1) 01/11/20 17:02 Troponin I < 0.015 ng/mL (<0.045) 01/11/20 17:02 - EKG Initial EKG Interpretation: Sinus Rhythm - EKG demonstrates a normal sinus rhythm with a left bundle branch block at a rate of 70. There is no ectopy noted. - Medical Decision Making Patient's cardiac work-up is negative. He is adamant that he is not going to take anything for his blood pressure. He understands completely that he may end up with stroke, renal failure, heart attack, or other debilitating condition as a result of his noncompliance. He appears to have the capacity to make this decision. He then asked me if I could kill him. He states he wants to be put down. He states he will not kill himself and he will not kill others but he wants somebody else to do it for him. He lost his couple years ago and since that time has had a hard time finding happiness. He does not have any guns at home. I had social work evaluate him please see their documentation. At this point he is not suicidal is not homicidal. He has been taking care of himself but it is his legal right did not take his blood pressure medications if he does not want to. And again he appears to have the capacity to make this decision. Patient will be referred back to primary care to discuss possible cardiac stress testing. Other possible etiologies like GERD are certainly a possibility. ED Disposition - Plan for ED Patient: Disposition: Home or Assisted Living Diagnosis: Chest pain, Depression, Medical non-compliance, Uncontrolled hypertension Instructions: ED Chest Pain, Uncertain Cause, ED Depression Referrals: Sandra Barahona MD [Primary Care Provider] - As soon as possible Additional Instructions: You should follow-up with your primary care physician and talk about a cardiac stress test. At this time given your recent echocardiogram and negative t roponin in ED no EKG changes I think it is very reasonable that we discharge you home.
[2020-01-11 17:22] VITALS: O2SAT 97
--- NOTE | 2020-01-11 17:32 | EKG12_ITS ---
Test Reason : CP Blood Pressure : / mmHG Vent. Rate : 070 BPM Atrial Rate : 070 BPM P-R Int : 152 ms QRS Dur : 140 ms QT Int : 444 ms P-R-T Axes : 041 -25 159 degrees QTc Int : 479 ms Normal sinus rhythm Left bundle branch block Abnormal ECG Confirmed by GE HAWLEY, FRANTZ ([id number]), department editor BONILLA ORTIZ ([id number]) on 01/15/2020 1:05:13 PM Referred By: BB Confirmed By:FRANTZ CAROLINA MD
[2020-01-11 17:40] LABS: Absolute Lymphocyte Count 1.41 X10^3/uL (0.83-4.51); Basophil# 0.04 X10^3/uL; Basophil% 0.5 % (0-1); Eosinophil# 0.21 X10^3/uL; Eosinophils% 2.9 % (0-5); Hematocrit 48.5 % (40-54); Hemoglobin 15.9 g/dL (13.0-16.5); Lymphocyte # 1.41 X10^3/ul (4.0); Lymphocyte % 19.4 % (19-41); Mean Corp Hgb Conc 32.8 g/dL (32-36); Mean Corpuscular Hgb 29.2 pg (27.0-32.0); Mean Platelet Vol. 11.8 fl (6.2-12.0); Monocyte# 0.65 X10^3/uL; Monocyte% 8.9 % (0-10); NRBC Flagged by Analyzer 0 % (0-5); Neutrophil # 4.96 X10^3/uL (2.7-7.7); Neutrophil % 68.2 % (47-70); Platelet Count 189 K/mm3 (150-450); RBC Distribution Width CV 13.1 % (11.6-14.6); RBC Distribution Width SD 42.7 fl (35.1-43.9); Red Blood Count 5.45 M/mm3 (4.6-6.2); White Blood Count 7.3 K/mm3 (4.4-11.0)
--- NOTE | 2020-01-11 17:45 | RAD_ITS ---
STUDY: X-RAY CHEST REASON FOR EXAM: Male, 64 years old. CHEST PAIN TECHNIQUE: 1 view COMPARISON: None. FINDINGS: Limited inspiration with generalized mild atelectatic changes. Otherwise negative for consolidation, other infiltrates or pleural effusion. There is no demonstrated pleural abnormality. Normal size heart. Normal mediastinum and dede. Normal visualized pulmonary arteries. There is atherosclerotic tortuosity of the aortic arch and descending thoracic aorta. There are diffuse degenerative changes of the visualized thoracic spine. Normal visualized ribs, clavicles, and shoulders. There is no demonstrated abnormality of the visualized soft tissue structures of the upper abdomen. RAD/Chest 1 View (Portable) IMPRESSION: Shallow inspiration without other acute cardiopulmonary findings. Negative for consolidation, focal atelectasis, cardiomegaly or pleural effusion. Electronically Signed: Roxy Livingston MD at 18:23 EST , Service support ,
[2020-01-11 18:02] LABS: Anion Gap 5 (5-15); BUN 14 mg/dL (7-18); BUN/Creat Ratio 14.5 RATIO (10-20); Chloride 105 mmol/L (98-107); Creatinine, Serum 0.96 mg/dL (0.70-1.30); EST Glomerular Filtration Rate 83 mL/min (>60); Est Glom Filt Rate - Afr Amer 100 mL/min (>60); Estimated Creatinine Clearance 63.38 ml/min; Glucose 97 mg/dL (74-106); Sodium Level 141 mmol/L (136-145)
--- NOTE | 2020-01-11 18:30 | ED.RN ---
Patient stated at he wants the doctor to put him down when asked why he wants to speak with the MD. Patient stated that he stopped taking his blood pressure medications because he is done and wants to . MD notified
[2020-01-11 18:50] VITALS: BP 114/79; PULSE 85; RESP 19; O2SAT 100
--- NOTE | 2020-01-11 19:19 | CM.ED ---
Social Work Consult: Discharge Planning/Mental Health Informant: Dr. Mccarthy Chief Complaint: Patient states to want the doctor to put me down. Marital/Social History: . Patient spouse of 20 years several years ago. Patient states she was my pride and thiago. Living Situation: Lives alone. Support/Resources: no active community supports. Reports to have limited support from family as only family lives in [place]. Patient reports to have had no children. History: None Education/Employment History: No issues with comprehension or understanding. Retired. Used to work in maintenance. Mental health Treatment/History: no mental health history. Triggers/Stressors: Patient spouse dying. Abuse Issues: Denies Substance Abuse/Use: Denies Risk to Self/Others: Patient denies suicidal thoughts, plans, intents. Patient states I don't want to kill myself. Patient denies history of suicidal thoughts, plans, intents. Patient denies homicidal thoughts, plans, intents. Patient denies self harming behavior. Mental Status Exam: A&Ox3 Appearance/General Behavior: Clean. Appropriate. Mood/Affect: Flat affect. Sad. Communication Pattern: Responds to questions. Initiates conversation. Thought Process: Denies auditory and visual hallucinations. Judgement: Good Assessment: Met with patient in room. Introduced self and web content & social media manager role. Patient agreeable to speak with this web content & social media manager. Patient reports wish for a doctor to put me down. Patient states to have spoken about this to patient primary care physician. Patient states I don't want to live anymore. Patient denies multiple times suicidal thoughts or plans to end patient own life. Patient states I want to go comfortably. Patient states that if patient were to be sent home today that patient will be disappointed that doctor did not end my life, but I would just keep on living. Patient denies having firearms in the home and states multiple times to this web content & social media manager, I am not going to kill myself. Patient respectful of this web content & social media manager. Patient also states multiple times to not want to be a bother. Patient with multiple medical team staff inquiring about patient noncompliance with medications prior to patient making statement to doctor about ending patient life. This web content & social media manager exploring noncompliance being brought up by medical team as a possible trigger to patient statement, patient only shrugged shoulders. Patient states I have rights to make my own decisions. This web content & social media manager knowledge patient right to make own medical decisions but also this social workers role to assist in maintaining patient safety to self. Patient again states I am not going to kill myself. This web content & social media manager inquiring about if patient would be comfortable with this web content & social media manager calling patient tomorrow to see how patient is doing. Patient states to not have a telephone, they are a bother. This web content & social media manager inquiring how patient got to the ED today. Patient states squad. This web content & social media manager inquiring who called the squad, patient states I did. Patient states to have used a friends phone to call the squad today. Of note to this web content & social media manager is that patient called the squad today as a protective factor. This web content & social media manager provided active listening and support. Patient is open to information on grief support group. This web content & social media manager provided grief support group information to patient. Patient states to not have anyone that is able to pick patient up today. Patient agreeable to having a taxi set up and reports to have money. Updated Dr. Mccarthy on above. Agreeable with plan for patient to discharge to home. Nursing updated on need for taxi to be called when patient is released. PLAN: Discharge to home. Erica GUTIÉRREZ, YVES
[2020-01-11 20:03] VITALS: BP 180/97; PULSE 75; RESP 18; O2SAT 96
== END 2020-01-11 20:06 | disposition home or self-care (01) ==
PROVIDERS: Emergency Provider Emergency Medicine; PCP Internal Medicine
DX: R07.9 Chest pain, unspecified (principal); F32.9 Major depressive disorder, single episode, unspecified; I10 Essential (primary) hypertension; Z91.19 Patient's noncompliance with other medical treatment and regimen; E11.9 Type 2 diabetes mellitus without complications; I11.9 Hypertensive heart disease without heart failure; I44.7 Left bundle-branch block, unspecified; Z87.891 Personal history of nicotine dependence
CPT/HCPCS: 71045; 80048; 84484; 85025; 93005; 99285; J7030; A4216

== ENCOUNTER 2020-02-03 14:08 | Emergency (ER) | payer MEDICARE, BC, SELFPAY ==
[2020-02-03 14:11] VITALS: BP 190/100; PULSE 73; RESP 18; TEMP 36.7; O2SAT 99; BMI 23.3
--- NOTE | 2020-02-03 14:24 | EKG12_ITS ---
Test Reason : CP Blood Pressure : / mmHG Vent. Rate : 072 BPM Atrial Rate : 072 BPM P-R Int : 152 ms QRS Dur : 154 ms QT Int : 434 ms P-R-T Axes : 030 -17 150 degrees QTc Int : 475 ms Normal sinus rhythm Left bundle branch block Abnormal ECG Confirmed by AMOS HAWLEY, ANIA ([id number]), editor school photograph VILMA PALMA ([id number]) on 02/08/2020 10:11:48 AM Referred By: MOE/CONNIE Confirmed By:WU TRINIDAD MD
--- NOTE | 2020-02-03 14:24 | RAD_ITS ---
STUDY: X-RAY CHEST REASON FOR EXAM: Male, 64 years old. CHEST PAIN MID CHEST, NO HX CHEST COMPLAINTS TECHNIQUE: Single AP portable view of the chest. COMPARISON: 01/11/2020 FINDINGS: The lungs are clear and expanded. There is no demonstrated pleural abnormality. Normal size heart. Normal mediastinum and dede. Normal visualized pulmonary arteries. Normal visualized aortic arch and descending thoracic aorta. Normal visualized thoracic spine. Normal visualized ribs, clavicles, and shoulders. There is no demonstrated abnormality of the visualized soft tissue structures of the upper abdomen. RAD/Chest 1 View (Portable) IMPRESSION: Normal x-ray examination of the chest. Electronically Signed: Kal Alvarez DO at 15:16 EST Tel , Service support ,
[2020-02-03 14:31] VITALS: BP 179/76; PULSE 73; RESP 16; O2SAT 99
[2020-02-03 14:51] LABS: Absolute Lymphocyte Count 1.41 X10^3/uL (0.83-4.51); Absolute Neutrophil Count 5.9 X10^3/uL (2.0-7.7); Basophil# 0.03 X10^3/uL; Basophil% 0.4 % (0-1); Eosinophil# 0.13 X10^3/uL; Eosinophils% 1.6 % (0-5); Hematocrit 45.9 % (40-54); Hemoglobin 14.9 g/dL (13.0-16.5); Lymphocyte # 1.41 X10^3/ul (4.0); Lymphocyte % 17.5 % (19-41); Mean Corp Hgb Conc 32.5 g/dL (32-36); Mean Corpuscular Hgb 28.7 pg (27.0-32.0); Mean Corpuscular Volume 88.4 fL (80-94); Mean Platelet Vol. 10.8 fl (6.2-12.0); Monocyte# 0.57 X10^3/uL; Monocyte% 7.1 % (0-10); NRBC Flagged by Analyzer 0 % (0-5); Neutrophil # 5.92 X10^3/uL (2.7-7.7); Neutrophil % 73.3 % (47-70); Platelet Count 187 K/mm3 (150-450); RBC Distribution Width CV 13.2 % (11.6-14.6); RBC Distribution Width SD 43.3 fl (35.1-43.9); Red Blood Count 5.19 M/mm3 (4.6-6.2); White Blood Count 8.1 K/mm3 (4.4-11.0)
[2020-02-03 14:57] VITALS: BP 176/96; PULSE 69
[2020-02-03] MEDS: Nitroglycerin SL (ED/IMG/CATH) 0.4 MG TABLET SUBLINGUAL ×2 (14:57→15:06)
[2020-02-03] MEDS: Aspirin 81 MG TAB.CHEW 324 MG PO (14:57)
[2020-02-03 15:01] LABS: Anion Gap 5 (5-15); BUN 14 mg/dL (7-18); BUN/Creat Ratio 14.3 RATIO (10-20); Calcium,Total 8.1 mg/dL (8.5-10.1); Chloride 107 mmol/L (98-107); Creatinine, Serum 0.98 mg/dL (0.70-1.30); EST Glomerular Filtration Rate 81 mL/min (>60); Est Glom Filt Rate - Afr Amer 98 mL/min (>60); Estimated Creatinine Clearance 62.09 ml/min; Glucose 111 mg/dL (74-106); Potassium 3.6 mmol/L (3.5-5.1); Sodium Level 140 mmol/L (136-145)
[2020-02-03 15:06] VITALS: BP 147/99; PULSE 75
--- NOTE | 2020-02-03 15:12 | ED.RN ---
PA REPORTS BP GOOD, PT CP UNCHANGED AFTER 2 NITRO PA VERBAL ORDER TO HOLD THIRD DOSE
[2020-02-03 15:13] VITALS: BP 146/87; PULSE 80; RESP 15; O2SAT 94
--- NOTE | 2020-02-03 15:55 | ED.DCSUM_ITS ---
History of Present Illness Informant: Patient Onset: Weeks - 3 weeks Activity at onset: Exertion, Light Activity, Rest Timing: Intermittent, Waxes and wanes Quality: Sharp, Stabbing Location: Substernal Current Severity: Moderate Maximum Severity: Moderate Worsened By: Nothing Relieved By: Nothing Associated Symptoms: Negative for: Nausea, Vomiting, Diaphoresis, Dyspnea, Cough, Fever, Lightheadedness, Acid Reflux, Palpitations Narrative: 64-year-old male with a past medical history of hypertension, hyperlipidemia, type 2 diabetes presents with chest pain. Patient been having intermittent episodes of chest pain for 3 weeks. He states they come and go at random. He states they last anywhere from 1 to 3 minutes at a time. He states that nothing really brings the monitor makes them better or worse. It is on the left side of his chest. There is no radiation. He does not have any exertional symptoms. He has not had any episodes of shortness of breath lightheadedness or dizziness nausea vomiting or diaphoresis. Denies any leg pain or swelling recent travel or surgery hemoptysis or history of DVT or PE. Denies any fevers or contacts of anyone who has had a positive test for COVID-19. Patient does admit to being noncompliant with his medications. He was admitted for hypertensive urgency last month. He states he never got his medications filled after being discharged from the hospital. Paramedics state that he has called them numerous times over the last 3 weeks for chest pain but until today has refused transport to the emergency department. Prior Similar Symptoms: Yes Recent Illness/Hospitalization: Yes CVD Risk Factors: Hypertension, Diabetes, Hypercholesterolemia PE Risk Factors: Negative for: Recent Travel/Surgery, Recenet Immobilization, Prior DVT or PE, Cancer, OCP + Smoking + >/=35 TAD Risk Factors: Hypertension. Negative for: Marfan's Syndrome, Family History <Esdras Baumann - Last Filed: 02/03/20 16:05> <Ebenezer Anna - Last Filed: 02/03/20 17:11> Chief Complaint: Chest Pain Past Medical History Prior records reviewed: Yes Past Medical History: - - Hypertension hyperlipidemia type 2 diabetes Surgical History: no surgical history Smoking Status: Former smoker - Family History Maternal Family History: Family History (Last Reviewed 12/04/19 @ 16:[address] Cristofer Louie MD) Sister Diabetes Family History: Reports: No pertinent history Paternal Family History: Family History (Last Reviewed 12/04/19 @ 16:[address] Cristofer Louie MD) Sister Diabetes Family History: Reports: No pertinent history <Esdras Baumann - Last Filed: 02/03/20 16:05> - Family History Maternal Family History: Family History (Last Reviewed 12/04/19 @ 16:[address] Cristofer Louie MD) Sister Diabetes Paternal Family History: Family History (Last Reviewed 12/04/19 @ 16:[address] Cristofer Louie MD) Sister Diabetes <Ebenezer Anna - Last Filed: 02/03/20 17:11> - Allergies and Home Meds Allergies/Adverse Reactions: Allergies No Known Allergies Allergy (Verified 01/11/20 17:16) Primary Care Physician: Sandra Barahona MD [Primary Care Provider] - Review of Systems All systems negative except as indicated General: Denies: Chills, Fever, Sweats Eyes: Denies: Visual changes - bilaterally, Diplopia ENT: Denies: Bilateral ear pain, Rhinorrhea, Sore throat Cardiovascular: Reports: Chest pain. Denies: Palpitations, Heart racing Respiratory: Denies: Dyspnea, Cough, Dyspnea on exertion Gastrointestinal: Denies: Abdominal pain, Nausea, Vomiting, Diarrhea, Melena, Hematochezia Genitourinary: Denies: Dysuria, Hematuria, Frequency Musculoskeletal: Denies: Back pain, Extremity Pain Skin: Denies: Rash, Wounds Neurological: Denies: Headache, Weakness, Numbness <Esdras Baumann - Last Filed: 02/03/20 16:05> Physical Exam Vital Signs/Narrative: Vital Signs Temp Pulse Resp BP Pulse Ox 02/03/20 15:13 80 15 146/87 H 94 02/03/20 15:06 75 147/99 H 02/03/20 14:57 69 176/96 H 02/03/20 14:31 73 16 179/76 H 99 02/03/20 14:11 98.1 F 73 18 190/100 H 99 Inital Vital Signs reviewed: Yes General: Well nourished, Well developed, No Acute Distress Head: Normocephalic, Atraumatic Eyes: Perrl, EOMI ENT: Moist mucous membranes, No rhinorrhea Neck: Supple, Nontender Cardiovascular: Regular rate, Regular rhythm, No murmurs Respiratory: No distress, CTA bilaterally, Chest nontender Abdomen: Soft, Nontender, Nondistended, Normal bowel sounds Back: Nontender, Normal Inspection Extremities: Nontender, No edema Skin: Normal color, No rash Neurological: Alert, Oriented x3, Cranial nerves II-XII grossly intact, Normal Strength, Normal Sensation Psychological: Normal affect, Normal Mood <Esdras Baumann - Last Filed: 02/03/20 16:05> Vital Signs/Narrative: Vital Signs Temp Pulse Resp BP Pulse Ox 02/03/20 16:06 72 18 154/89 H 97 02/03/20 15:13 80 15 146/87 H 94 02/03/20 15:06 75 147/99 H 02/03/20 14:57 69 176/96 H 02/03/20 14:31 73 16 179/76 H 99 02/03/20 14:11 98.1 F 73 18 190/100 H 99 <Ebenezer Anna - Last Filed: 02/03/20 17:11> Diagnostic/Tx/Re-eval Chest X-Ray - ED: 1 View, Read by ED Physician, Read by Radiologist, No Acute Disease - Rhythm Strip Rhythm Strip: Sinus Rhythm Rate: 77 Ectopy: None - EKG Initial EKG Interpretation: Sinus Rhythm, No Acute Injury Pattern, LBBB Prior: Unchanged Treatment: Aspirin, NTG SL Repeat Eval: Pain Free - Medical Decision Making Patient presented with 3 weeks of chest pain intermittently. On arrival he had an elevated blood pressure. This was due to noncompliance with any of his medications. He was given a nitroglycerin series sublingual. He was given 2 doses. Did not alter his pain but his blood pressure did improve to 140/81. His EKG on arrival was a sinus rhythm. No acute ischemic changes were noted. He does have a left bundle branch block which is unchanged per his previous EKG. Chest x-ray was unremarkable for acute findings. CBC and BMP are unremarkable. Troponin is negative. Repeat evaluation discussed with patient the importance of compliance with his medication regimen. I will prescribe him his medications that he was supposed to get filled after being discharged from here last month. Patient during his adm ission last month had an echocardiogram and a stress test that were negative. We do not feel he requires admission today and he is also had symptoms for 3 weeks. <Esdras Baumann - Last Filed: 02/03/20 16:05> - Medical Decision Making Patient was seen with me. I did a [id number] examination with the patient. Patient presents with intermittent chest pain for the past 3 weeks. Patient was recently admitted to the hospital and was discharged home after hypertensive urgency. Patient did not get his blood pressure medications refilled. Patient denies any shortness of breath. Patient denies any nausea or vomiting. Vital signs are stable. Patient is afebrile. Patient is in no acute distress. Oral mucosa is pink and moist. Neck is supple. Trachea is midline. There is no JVD or lymphadenopathy. Heart was regular rate and rhythm. Lungs are clear and equal bilaterally. Abdomen is soft and nontender. Cranial nerves II throug h XII are intact. There are no focal motor or sensory deficits. EKG was obtained. On my interpretation, there is normal sinus rhythm with a left bundle branch block. There are no acute ST or T wave changes noted. This is unchanged compared to previous EKG. Portable 1 view chest x-ray was obtained. On my interpretation, lung galvez are clear. There is normal cardiac silhouette. Bony thorax is normal. There is no acute process noted. This is also interpreted by the radiologist and agrees. CBC and basic metabolic profile were obtained and were within normal limits. Troponin was normal. Patient was given sublingual nitroglycerin here. Patient's blood pressure improved. Patient states his symptoms have improved. Patient was instructed to refill his blood pressure medications. Patient was instructed to take these as prescribed. Patient was instructed to follow-up with his primary care physician in 5 to 7 days. Patient understood and was agreeable with the plan. All questions were answered. <Ebenezer Anna - Last Filed: 02/03/20 17:11> ED Disposition <Esdras Baumann - Last Filed: 02/03/20 16:05> <Ebenezer Anna - Last Filed: 02/03/20 17:11> - Plan for ED Patient: Disposition: Home or Assisted Living Diagnosis: Uncontrolled hypertension, Chest pain Instructions: ED Chest Pain, Uncertain Cause, ED Hypertension, Established Prescriptions: Losartan/Hydrochlorothiazide [Losartan-Hctz 50-12.5 mg Tab] 1 ea PO DAILY #30 tab Transmission Status: Received by [facility] Metformin HCl 500 mg PO BID #60 tab Transmission Status: Received by [facility] Amlodipine [Norvasc] 5 mg PO DAILY #30 tab Transmission Status: Received by [facility] Referrals: Sandra Barahona MD [Primary Care Provider] -
[2020-02-03 16:06] VITALS: BP 154/89; PULSE 72; RESP 18; O2SAT 97
== END 2020-02-03 16:17 | disposition home or self-care (01) ==
PROVIDERS: Emergency Provider Physician Assistant Medical; PCP Internal Medicine
DX: I10 Essential (primary) hypertension (principal); R07.9 Chest pain, unspecified; I44.7 Left bundle-branch block, unspecified; E78.5 Hyperlipidemia, unspecified; E11.9 Type 2 diabetes mellitus without complications; Z87.891 Personal history of nicotine dependence; Z83.3 Family history of diabetes mellitus; Z91.14 Patient's other noncompliance with medication regimen
CPT/HCPCS: 71045; 80048; 84484; 85025; 93005; 99285; A4216

== ENCOUNTER 2020-02-04 10:35 | Emergency (ER) | payer MEDICARE, BC, SELFPAY ==
[2020-02-03 14:11] VITALS: BMI 23.3
[2020-02-04 10:36] VITALS: BP 182/95; PULSE 88; RESP 16; TEMP 36.3; O2SAT 97; BMI 22.0
--- NOTE | 2020-02-04 10:51 | CT_ITS ---
STUDY: CT ABDOMEN AND PELVIS WITH CONTRAST REASON FOR EXAM: Male, 64 years old. Right groin pain intermittent x yesterday. No hx stones, denies urinary symptons. Hx diabetes, hypertension. RADIATION DOSAGE (If Supplied By Facility): CTDIvol = ( 17.90 ) mGy, DLP = ( 536.82 ) mGycm TECHNIQUE: Transaxial images were obtained from the dome of the diaphragm to the symphysis pubis without oral contrast. IV 100mL Isovue-370 was administered. Sagittal and coronal images were reconstructed. Individualized dose optimization techniques were used for this CT. COMPARISON: None. FINDINGS: The visualized lung bases are unremarkable. The visualized portions of the heart are within normal limits. Normal liver. Normal gallbladder and extrahepatic biliary system. Normal spleen. Normal pancreas. Normal bilateral adrenal glands. Normal right kidney. Normal left kidney. Small nonenhancing right renal cyst. There is a small hiatal hernia. Normal small intestine. There are multiple colonic diverticula consistent with diverticulosis. The appendix is visualized and appears normal. Normal abdominal aorta. Normal inferior vena cava. Normal retroperitoneum. Prominent distention of the urinary bladder may represent urinary retention. Enlarged and heterogeneously enhancing prostate. Bilateral fat-containing inguinal hernias. Normal abdominal wall. There are diffuse degenerative changes of the visualized lumbar spine. CT/Abdomen/Pelvis W IV Cont ONLY IMPRESSION: 1. Bilateral fat-containing inguinal hernias 2. Suggestion of urinary retention as above Electronically Signed: Kal Alvarez DO at 12:14 EST Tel , Service support ,
[2020-02-04] MEDS: 0.9% Normal Saline 1,000 ML 999 ML IV (11:02)
[2020-02-04 11:12] LABS: Bacteria 0 SEEN /hpf (None Seen); Mucous, Urine 0 SEEN /hpf (<or=2+); Red Blood Cells-Urine 0 SEEN /hpf (0-5); Squamous Epithelial Cells - UA 0 SEEN /hpf (0-5); White Blood Cells 0 SEEN /hpf (0-5)
[2020-02-04 11:13] LABS: Absolute Neutrophil Count 5.2 X10^3/uL (2.0-7.7); Basophil# 0.04 X10^3/uL; Basophil% 0.6 % (0-1); Eosinophil# 0.12 X10^3/uL; Eosinophils% 1.7 % (0-5); Hematocrit 46.2 % (40-54); Hemoglobin 15.6 g/dL (13.0-16.5); Lymphocyte % 17.9 % (19-41); Mean Corp Hgb Conc 33.8 g/dL (32-36); Mean Corpuscular Hgb 29.6 pg (27.0-32.0); Mean Corpuscular Volume 87.7 fL (80-94); Mean Platelet Vol. 10.9 fl (6.2-12.0); Monocyte# 0.55 X10^3/uL; Monocyte% 7.6 % (0-10); NRBC Flagged by Analyzer 0 % (0-5); Neutrophil # 5.23 X10^3/uL (2.7-7.7); Neutrophil % 71.8 % (47-70); Platelet Count 204 K/mm3 (150-450); RBC Distribution Width CV 13.2 % (11.6-14.6); RBC Distribution Width SD 42.6 fl (35.1-43.9); Red Blood Count 5.27 M/mm3 (4.6-6.2); White Blood Count 7.3 K/mm3 (4.4-11.0)
--- NOTE | 2020-02-04 11:14 | ED.VIS.GEN ---
History of Present Illness Informant: Patient Onset: Yesterday Context: Gradual Onset Timing: Continuous Quality: sharp Location: right groin Current Severity: Severe Maximum Severity: Severe Worsened by: walking Relieved by: nothing Associated Symptoms: denies Narrative: 64-year-old male history of hypertension hyperlipidemia type 2 diabetes mellitus presents to the emergency department with right groin pain. He was seen here yesterday evaluated for chest pain and discharged home. Since last evening after he left this facility he has been having pain in his right groin and right lower quadrant of his abdomen. He denies trauma or injury. He is not having testicular pain. He denies any fevers nausea vomiting or diarrhea or urinary symptoms. Worse with movement or palpation. Better with rest. No history of abdominal surgery. He denies history of kidney stones or hernias. Denies any history of testicular surgery. Prior similar symptoms: No Recent Illness/Hospitalization: No <Esdras Baumann - Last Filed: 02/04/20 12:25> <Jacques Paris - Last Filed: 02/04/20 13:16> Chief Complaint: Other, Pain/Inj Past Medical History Prior records reviewed: Yes Past Medical History: - - Hypertension hyperlipidemia type 2 diabetes mellitus Surgical History: no surgical history Lives: Alone Smoking Status: Former smoker Alcohol: None Drugs: None - Family History Maternal Family History: Family History (Last Reviewed 12/04/19 @ 16:[address] Cristofer Louie MD) Sister Diabetes Family History: Reports: No pertinent history Paternal Family History: Family History (Last Reviewed 12/04/19 @ 16:[address] Cristofer Louie MD) Sister Diabetes Family History: Reports: No pertinent history <Esdras Baumann - Last Filed: 02/04/20 12:25> - Family History Maternal Family History: Family History (Last Reviewed 12/04/19 @ 16:[address] Cristofer Loiue MD) Sister Diabetes Paternal Family History: Family History (Last Reviewed 12/04/19 @ 16:[address] Cristofer Louie MD) Sister Diabetes <Jacques Paris - Last Filed: 02/04/20 13:16> - Allergies and Home Meds Allergies/Adverse Reactions: Allergies No Known Allergies Allergy (Verified 01/11/20 17:16) Primary Care Physician: Jaxon Flores MD [STAFF PHYSICIAN] - As soon as possible Sandra Barahona MD [Primary Care Provider] - As soon as possible Review of Systems All systems negative except as indicated General: Denies: Chills, Fever, Sweats Eyes: Denies: Visual changes - bilaterally, Diplopia ENT: Denies: Rhinorrhea, Sore throat Cardiovascular: Denies: Chest pain, Palpitations Respiratory: Denies: Dyspnea, Cough, Dyspnea on exertion Gastrointestinal: Reports: Abdominal pain. Denies: Nausea, Vomiting, Diarrhea, Constipation, Melena, Hematochezia Genitourinary: Denies: Dysuria, Hematuria, Frequency Musculoskeletal: Reports: Extremity Pain. Denies: Myalgias, Arthralgias, Neck pain, Back pain, Swelling Skin: Denies: Rash, Wounds Neurological: Denies: Headache, Weakness, Numbness <Esdras Baumann - Last Filed: 02/04/20 12:25> Physical Exam Vital Signs/Narrative: Vital Signs Temp Pulse Resp BP Pulse Ox 02/04/20 10:36 97.4 F L 88 16 182/95 H 97 Inital Vital Signs reviewed: Yes General: Well nourished, Well developed, No Acute Distress Head: Normocephalic, Atraumatic Eyes: Perrl, EOMI ENT: Moist mucous membranes, No rhinorrhea Neck: Supple, Nontender Cardiovascular: Regular rate, Regular rhythm, No murmurs Respiratory: No distress, CTA bilaterally, Chest nontender Abdomen: Soft, Nondistended, Normal bowel sounds, Tender - Patient has right lower quadrant tenderness on palpation. There is no obvious hernia palpated. No guarding or rebound. : - - Normal inspection of the scrotum and penis. No swelling or redness no bruising no signs of trauma or rash or infection. He has no testicular tenderness on palpation bilaterally. There is no penile discharge. There is no inguinal lymphadenopathy. I did not appreciate an obvious inguinal hernia Back: Nontender, Normal Inspection. Negative for: CVA tenderness Extremities: Nontender, No edema. Negative for: Tenderness, Edema Skin: Normal color, No rash Neurological: Alert, Oriented x3, Cranial nerves II-XII grossly intact, Normal Strength, Normal Sensation Psychological: Normal affect, Normal Mood <Esdras Baumann - Last Filed: 02/04/20 12:25> Vital Signs/Narrative: Vital Signs Temp Pulse Resp BP Pulse Ox 02/04/20 12:34 78 16 165/87 H 97 02/04/20 11:15 79 16 156/96 H 97 02/04/20 10:36 97.4 F L 88 16 182/95 H 97 <Jacques Paris - Last Filed: 02/04/20 13:16> Diagnostic/Tx/Re-eval Impressions Abdomen/Pelvis CT 02/04/20 10:51 IMPRESSION: 1. Bilateral fat-containing inguinal hernias 2. Suggestion of urinary retention as above Electronically Signed: Kal Alvarze DO at 12:14 EST Tel , Service support , 02/04/20 10:51 Abdomen/Pelvis W IV Cont ONLY [CT] Stat Laboratory Results 02/04/20 02/04/20 02/04/20 10:55 10:55 11:05 WBC 7.3 RBC 5.27 Hgb 15.6 Hct 46.2 MCV 87.7 MCH 29.6 MCHC 33.8 RDW Std Deviation 42.6 RDW Coeff of Lacey 13.2 Plt Count 204 MPV 10.9 Immature Gran % (Auto) 0.400 Neut % (Auto) 71.8 H Lymph % (Auto) 17.9 L [place] % (Auto) 7.6 Eos % (Auto) 1.7 Baso % (Auto) 0.6 Absolute Neuts (auto) 5.2 Absolute Lymphs (auto) 1.30 Nucleated RBC % 0 Sodium 141 Potassium 3.4 L Chloride 107 Carbon Dioxide 27.0 Anion Gap 7 BUN 11 Creatinine 0.98 Estim Creat Clear Calc 61.13 Est GFR (MDRD) Af Amer 99 Est GFR (MDRD) Non-Af 81 BUN/Creatinine Ratio 11.2 Glucose 103 Calcium 8.4 L Urine Color Straw Urine Clarity Clear Urine pH 7.0 Ur Specific [place] 1.005 Urine Protein Negative Urine Glucose (UA) Normal Urine Ketones 5 H Urine Occult Blood Negative Urine Nitrite Negative Urine Bilirubin Negative Urine Urobilinogen Normal Ur Leukocyte Esterase Negative Urine RBC 0 SEEN Urine WBC 0 SEEN Ur Squamous Epith Cells 0 SEEN Urine Bacteria 0 SEEN Urine Mucus 0 SEEN - Medical Decision Making Patient declined analgesia in the emergency department. Laboratory work-up and urinalysis are unremarkable. CT scan demonstrates bilateral fat-containing inguinal hernias. Repeat exam patient is pain-free. He was reassured. He will prescribed anti-inflammatories. He will follow up with general surgery to which he was referred. He was advised that if he develops worsening symptoms which we discussed return to the emergency department otherwise follow-up as directed with general surgery and his primary care <Esdras Baumann - Last Filed: 02/04/20 12:25> - Medical Decision Making Agree with above assessment and plan. Patient evaluated and in no apparent distress. Will have him follow-up with his PCP. He is advised to hold pressure over the area whenever he is straining to have bowel movements or moving from sitting to standing positions. He understands and is agreeable this plan. Discharged in stable condition. All questions were answered. <Jacques Paris - Last Filed: 02/04/20 13:16> ED Disposition <Esdras Baumann - Last Filed: 02/04/20 12:25> <Jacques Paris - Last Filed: 02/04/20 13:16> - Plan for ED Patient: Disposition: Home or Assisted Living Diagnosis: Bilateral inguinal hernia without obstruction or gangrene, Hypertension, Type 2 diabetes mellitus Instructions: ED Hernia (Adult) Prescriptions: Naproxen [Naprosyn] 500 mg PO BID #14 tab Prescription Printed Referrals: Sandra Barahona MD [Primary Care Provider] - As soon as possible Jaxon Flores MD [STAFF PHYSICIAN] - As soon as possible
[2020-02-04 11:15] VITALS: BP 156/96; PULSE 79; RESP 16; O2SAT 97
[2020-02-04 11:16] LABS: Color, Urine Straw (Yellow); Glucose, Dipstick Normal (Normal); Ketone-Dipstick 5 mg/dl (Negative); Leukocyte Esterase-Dipstick Negative /ul (Negative); Nitrite-Dipstick Negative (Negative); Occult Blood-Urine Negative /ul (Negative); Protein-Dipstick Negative (Negative); Specific Gravity, Urine 1.005 (1.002-1.030); Urine Bilirubin Dipstick Negative (Negative); Urine Clarity Clear (Clear); Urine Urobilinogen Normal (Normal)
[2020-02-04 11:32] LABS: Anion Gap 7 (5-15); BUN 11 mg/dL (7-18); BUN/Creat Ratio 11.2 RATIO (10-20); Calcium,Total 8.4 mg/dL (8.5-10.1); Chloride 107 mmol/L (98-107); Creatinine, Serum 0.98 mg/dL (0.70-1.30); EST Glomerular Filtration Rate 81 mL/min (>60); Est Glom Filt Rate - Afr Amer 99 mL/min (>60); Estimated Creatinine Clearance 61.13 ml/min; Glucose 103 mg/dL (74-106); Potassium 3.4 mmol/L (3.5-5.1); Sodium Level 141 mmol/L (136-145)
--- NOTE | 2020-02-04 12:23 | ED.RN ---
PT CALLED OUT THAT HE URINATED THE BED . THIS NURSE WENT BACK TO CLEAN PT UP AND HE WAS ABLE TO STAND BESIDE THE BED. WHILE HE WAS STANDING THERE HE BEGAN URINATING ON THE FLOOR. KRISS IS AWARE WELL DR BERNAL.
[2020-02-04 12:34] VITALS: BP 165/87; PULSE 78; RESP 16; O2SAT 97
== END 2020-02-04 12:35 | disposition home or self-care (01) ==
PROVIDERS: Emergency Provider Physician Assistant Medical; PCP Internal Medicine
DX: K40.20 Bilateral inguinal hernia, without obstruction or gangrene, not specified as recurrent (principal); I10 Essential (primary) hypertension; E11.9 Type 2 diabetes mellitus without complications; E78.5 Hyperlipidemia, unspecified; Z83.3 Family history of diabetes mellitus; Z87.891 Personal history of nicotine dependence
CPT/HCPCS: 74177; 80048; 81001; 85025; 96360; 99285; J7030; Q9967

== ENCOUNTER 2020-02-06 11:39 | Emergency (ER) | payer MEDICARE, BC, SELFPAY ==
[2020-02-06 11:40] VITALS: BP 142/89; PULSE 94; RESP 16; TEMP 36.6; O2SAT 95; BMI 23.0
--- NOTE | 2020-02-06 11:48 | EKG12_ITS ---
Test Reason : CP Blood Pressure : / mmHG Vent. Rate : 082 BPM Atrial Rate : 082 BPM P-R Int : 154 ms QRS Dur : 142 ms QT Int : 412 ms P-R-T Axes : 036 -10 156 degrees QTc Int : 481 ms Normal sinus rhythm Left bundle branch block Abnormal ECG Confirmed by AMOS HAWLEY, ANIA ([id number]), content editor VILMA PALMA ([id number]) on 02/12/2020 9:22:59 AM Referred By: KEYUR Confirmed By:WU TRINIDAD MD
[2020-02-06 11:56] LABS: Absolute Lymphocyte Count 1.14 X10^3/uL (0.83-4.51); Basophil# 0.04 X10^3/uL; Basophil% 0.5 % (0-1); Eosinophil# 0.13 X10^3/uL; Eosinophils% 1.7 % (0-5); Hematocrit 47.2 % (40-54); Lymphocyte # 1.14 X10^3/ul (4.0); Lymphocyte % 14.7 % (19-41); Mean Corp Hgb Conc 33.9 g/dL (32-36); Mean Corpuscular Hgb 29.7 pg (27.0-32.0); Mean Corpuscular Volume 87.7 fL (80-94); Mean Platelet Vol. 10.8 fl (6.2-12.0); Monocyte# 0.47 X10^3/uL; NRBC Flagged by Analyzer 0 % (0-5); Neutrophil # 5.98 X10^3/uL (2.7-7.7); Platelet Count 205 K/mm3 (150-450); RBC Distribution Width CV 13.2 % (11.6-14.6); RBC Distribution Width SD 42.5 fl (35.1-43.9); Red Blood Count 5.38 M/mm3 (4.6-6.2); White Blood Count 7.8 K/mm3 (4.4-11.0)
[2020-02-06 12:10] LABS: Anion Gap 6 (5-15); BUN 11 mg/dL (7-18); BUN/Creat Ratio 10.6 RATIO (10-20); Calcium,Total 8.5 mg/dL (8.5-10.1); Chloride 103 mmol/L (98-107); Creatinine, Serum 1.04 mg/dL (0.70-1.30); EST Glomerular Filtration Rate 76 mL/min (>60); Est Glom Filt Rate - Afr Amer 92 mL/min (>60); Glucose 139 mg/dL (74-106); Potassium 3.3 mmol/L (3.5-5.1); Sodium Level 137 mmol/L (136-145)
--- NOTE | 2020-02-06 12:20 | ED.VIS.GEN ---
History of Present Illness Chief Complaint: Chest Pain Informant: Patient Narrative: Patient is a 64-year-old male who presents to the emergency department for chest pain. This is been ongoing issue with him for the past couple of weeks. He has been seen in the emergency department for the same complaint. He has had full work-ups done. He states his chest pain is a 3 out of 10 substernal. Does not radiate. Does not know aggravating factors. Exerting himself does not make this worse. He has not tried taking anything for this. Patient was previously noncompliant with his medications but states he did get them filled as been taking them. He has not followed up with his PCP though. He denies any leg swelling or calf pain. No history of CAD. No history of DVT/PE. Does feel mildly short of breath with this. No palpitations. He has had a mild cough without production. No fevers or chills. No nausea/vomiting or diarrhea. Past Medical History - Allergies and Home Meds Allergies/Adverse Reactions: Allergies No Known Allergies Allergy (Verified 02/06/20 11:44) Primary Care Physician: Sandra Barahona MD [Primary Care Provider] - 2 Days Prior records reviewed: Yes Past Medical History: - - Hypertension, diabetes Surgical History: no surgical history Smoking Status: Never smoker - Family History Maternal Family History: Family History (Last Reviewed 12/04/19 @ 16:[address] Cristofer Louie MD) Sister Diabetes Family History: Reports: No pertinent history Paternal Family History: Family History (Last Reviewed 12/04/19 @ 16:[address] Cristofer Louie MD) Sister Diabetes Family History: Reports: No pertinent history Review of Systems All systems negative except as indicated General: Denies: Chills, Fever, Sweats Eyes: Denies: Visual changes - bilaterally, Diplopia ENT: Denies: Rhinorrhea, Sore throat Cardiovascular: Reports: Chest pain. Denies: Palpitations Respiratory: Reports: Dyspnea, Cough. Denies: Dyspnea on exertion Gastrointestinal: Denies: Abdominal pain, Nausea, Vomiting, Diarrhea, Melena, Hematochezia Genitourinary: Denies: Dysuria, Hematuria, Frequency Musculoskeletal: Denies: Back pain, Extremity Pain Skin: Denies: Rash, Wounds Neurological: Denies: Headache, Weakness, Numbness Physical Exam Vital Signs/Narrative: Vital Signs Temp Pulse Resp BP Pulse Ox 02/06/20 11:40 97.8 F 94 16 142/89 H 95 Inital Vital Signs reviewed: Yes General: Well nourished, Well developed, No Acute Distress Head: Normocephalic, Atraumatic Eyes: Perrl, EOMI ENT: No rhinorrhea Neck: Supple, Nontender Cardiovascular: Regular rate, Regular rhythm, No murmurs Respiratory: No distress, CTA bilaterally, Chest tenderness - Symptoms are reproducible over the sternal region. Abdomen: Soft, Nontender, Nondistended, Normal bowel sounds Back: Nontender, Normal Inspection Extremities: Nontender, No edema. Negative for: Calf Tenderness Skin: Normal color, No rash Neurological: Alert, Oriented x3, Normal Strength, Normal Sensation Psychological: Normal affect, Normal Mood Diagnostic/Tx/Re-eval Chest X-Ray - ED: - - Portable chest x-ray interpreted by myself. Single view. No acute consolidation. Normal cardiac silhouette. No pleural effusions. Normal mediastinum. No acute cardiopulmonary abnormality. - EKG Initial EKG Interpretation: - - Rate of 82 bpm and normal sinus rhythm. Has a prolonged QRS of 142 with left bundle branch block. No significant evidence of ST elevations or depressions otherwise. Prior EKG for comparison was performed on February 022019 which does have a similar appearance. - Medical Decision Making Patient presents to the ED for acute on chronic exacerbation of his chest pain. This does not come and go randomly. It is not related to exertion. Upon arrival to the emergency department he is in no acute distress. Vital signs within normal limits. His pain is reproducible on palpation of his chest. EKG, chest x-ray and basic lab work are performed. Patient's work-up did not reveal a significant acute abnormality. He does have a heart score of 4 but his symptoms are reproducible which does not make me think it is cardiac in etiology. His troponin is negative and his symptoms have been going on for weeks. He has been evaluated for this multiple times. He has not followed up with his family doctor. I believe he will require stress test but does not need to be done on a inpatient basis. He does not meet any PE criteria and I do not have a suspicion for this is a satting well on room air, not tachycardic and not complaining of any significant shortness of breath. We will discharge him home in stable condition. He is to have close follow-up with his family doctor. Strict return precautions were discussed with him. He understands and is agreeable this plan. All questions were answered. ED Disposition - Plan for ED Patient: Disposition: Home or Assisted Living Diagnosis: Chest wall pain Instructions: ED Chest Pain, Noncardiac Referrals: Sandra Barahona MD [Primary Care Provider] - 2 Days
[2020-02-06 12:44] VITALS: BP 125/80; PULSE 80; RESP 16; O2SAT 97
[2020-02-06 14:42] VITALS: BP 155/103; PULSE 83; RESP 16; O2SAT 98
== END 2020-02-06 14:48 | disposition home or self-care (01) ==
PROVIDERS: Emergency Provider Emergency Medicine; PCP Internal Medicine
DX: R07.89 Other chest pain (principal); I44.7 Left bundle-branch block, unspecified; Z91.14 Patient's other noncompliance with medication regimen; R06.02 Shortness of breath; E11.9 Type 2 diabetes mellitus without complications; I10 Essential (primary) hypertension; Z83.3 Family history of diabetes mellitus
CPT/HCPCS: 71045; 80048; 84484; 85025; 93005; 99285

== ENCOUNTER → 2020-05-22 09:13 | Outpatient (CLI) | payer MEDICARE, BC, SELFPAY ==
[2020-05-22 09:16] LABS: Bacteria 0 SEEN /hpf (None Seen); Mucous, Urine 0 SEEN /hpf (<or=2+); Red Blood Cells-Urine 0 SEEN /hpf (0-5); Squamous Epithelial Cells - UA 0 SEEN /hpf (0-5); White Blood Cells 0 SEEN /hpf (0-5)
[2020-05-22 12:43] LABS: Color, Urine Straw (Yellow); Glucose, Dipstick Normal (Normal); Ketone-Dipstick Negative (Negative); Leukocyte Esterase-Dipstick Negative /ul (Negative); Nitrite-Dipstick Negative (Negative); Occult Blood-Urine Negative /ul (Negative); Protein-Dipstick Negative (Negative); Urine Bilirubin Dipstick Negative (Negative); Urine Clarity Clear (Clear); Urine Urobilinogen Normal (Normal)
== END ==
PROVIDERS: PCP Internal Medicine; Referring Provider Physician Assistant; Visit Provider Physician Assistant
DX: R35.0 Frequency of micturition (principal); R30.0 Dysuria
CPT/HCPCS: 81001; 87086; 87088

== ENCOUNTER 2020-07-22 11:55 | Emergency (ER) | payer MEDICARE, BC, SELFPAY ==
[2020-07-22 11:56] VITALS: BP 111/77; PULSE 93; RESP 20; TEMP 36.6; O2SAT 98; BMI 25.7
--- NOTE | 2020-07-22 12:12 | CT_ITS ---
STUDY: CT BRAIN WITHOUT CONTRAST REASON FOR EXAM: Male, 64 years old. Confusion RADIATION DOSAGE (If Supplied By Facility): CTDIvol = ( 44.99 ) mGy, DLP = ( 779.24 ) mGycm TECHNIQUE: Transaxial CT imaging of the brain was performed without administration of intravenous contrast material. Individualized dose optimization techniques were used for this CT. COMPARISON: Comparison is made with prior study dated 12/04/2019. FINDINGS: Normal soft tissue structures. Normal calvarium. There is mild cerebral atrophy with widening of the extra-axial spaces and ventricular dilatation. There are areas of decreased attenuation within the white matter tracts of the supratentorial brain, consistent with microvascular disease changes. There are small punctate calcifications of the basal ganglia which are seen in the aging brain as a normal variant. Stable focal lacunar infarct in the left basal ganglia. Normal brainstem. Normal cerebellum. There is no intracranial hemorrhage. There are no findings of an acute ischemic infarction. Atherosclerotic calcification of the carotid arteries and vertebral arteries bilaterally. Partial opacification of the right sphenoid sinus. CT/Brain/Head without Contrast IMPRESSION: Chronic involutional changes of the brain. Electronically Signed: Anurag Chavira MD at 12:57 EDT , Service support ,
--- NOTE | 2020-07-22 12:33 | RAD_ITS ---
STUDY: X-RAY CHEST REASON FOR EXAM: Male, 64 years old. Cough TECHNIQUE: Single AP portable view of the chest. COMPARISON: Comparison is made with prior study dated 02/06/2020. FINDINGS: The lungs are clear and expanded. There is no demonstrated pleural abnormality. Normal size heart. Normal mediastinum and dede. Normal visualized pulmonary arteries. There is atherosclerotic tortuosity of the aortic arch and descending thoracic aorta. There are diffuse degenerative changes of the visualized thoracic spine. There is degenerative osteoarthritis of the bilateral shoulders. There is no demonstrated abnormality of the visualized soft tissue structures of the upper abdomen. RAD/Chest 1 View (Portable) IMPRESSION: No acute abnormality is seen. Electronically Signed: Anurag Chavira MD at 12:54 EDT , Service support ,
[2020-07-22 13:07] LABS: Absolute Lymphocyte Count 1.24 X10^3/uL (0.83-4.51); Absolute Neutrophil Count 5.2 X10^3/uL (2.0-7.7); Basophil# 0.03 X10^3/uL; Basophil% 0.4 % (0-1); Eosinophil# 0.13 X10^3/uL; Eosinophils% 1.8 % (0-5); Hematocrit 41.2 % (40-54); Hemoglobin 13.8 g/dL (13.0-16.5); Lymphocyte # 1.24 X10^3/ul (0.83-4.51); Lymphocyte % 17.2 % (19-41); Mean Corp Hgb Conc 33.5 g/dL (32-36); Mean Corpuscular Hgb 29.5 pg (27.0-32.0); Mean Platelet Vol. 10.8 fl (6.2-12.0); Monocyte% 8.3 % (0-10); NRBC Flagged by Analyzer 0 % (0-5); Neutrophil # 5.19 X10^3/uL (2.7-7.7); Neutrophil % 72.2 % (47-70); Platelet Count 188 K/mm3 (150-450); RBC Distribution Width CV 12.9 % (11.6-14.6); RBC Distribution Width SD 41.1 fl (35.1-43.9); Red Blood Count 4.68 M/mm3 (4.6-6.2); White Blood Count 7.2 K/mm3 (4.4-11.0)
[2020-07-22 13:24] LABS: AST(SGOT) 32 U/L (15-37); Alanine Aminotransfer ALT/SGPT 56 U/L (16-61); Albumin, Serum 3.6 g/dL (3.2-5.0); Alkaline Phosphatase 104 U/L (45-117); Anion Gap 4 (5-15); BUN 13 mg/dL (7-18); BUN/Creat Ratio 12.5 RATIO (10-20); Calcium,Total 8.5 mg/dL (8.5-10.1); Chloride 106 mmol/L (98-107); Creatinine, Serum 1.04 mg/dL (0.70-1.30); EST Glomerular Filtration Rate 76 mL/min (>60); Est Glom Filt Rate - Afr Amer 92 mL/min (>60); Globulin 3.7 g/dL (2.2-4.2); Glucose 106 mg/dL (74-106); Potassium 4.3 mmol/L (3.5-5.1); Protein, Total 7.3 g/dL (6.4-8.2); Sodium Level 141 mmol/L (136-145)
--- NOTE | 2020-07-22 15:03 | EX.ED.DYSGE1 ---
HPI History of Present Illness Chief Complaint: Mental Health Onset/Context/Timing Context: Gradual Onset Timing: Continuous Quality: Confusion Location: Generalized Worsened by: Nothing Relieved by: Nothing Narrative Narrative: Patient presents because he says he is being more confused over the past few days. Patient states it is gradually getting worse. Patient states it is constant. Patient states nothing makes it worse and nothing makes it better. Patient states she is confused about his brother. Patient states he did receive his first Covid vaccine on 07/19. Nursing triage states the patient is supposed to be living in a detention near [place]. Police were called because the patient left that detention and return to his home but there was no electric or water. Patient states he does not think he can care for himself. [facility] Medical History (Updated 07/22/20 @ 15:[address] Ebenezer Anna DO) Cataract Hypercholesterolemia Hypertension Home Medications amlodipine 5 mg tablet 5 mg PO DAILY #90 tablet 05/22/20 [Rx Last Taken Unknown] aspirin 81 mg chewable tablet 81 mg PO DAILY@0800 #90 tablet 05/22/20 [Rx Last Taken Unknown] atorvastatin 40 mg tablet 40 mg PO QHS #90 tablet 05/22/20 [Rx Last Taken Unknown] ciprofloxacin HCl 250 mg tablet 250 mg PO BID #6 tablet 05/22/20 [Rx Last Taken Unknown] losartan 50 mg-hydrochlorothiazide 12.5 mg tablet 1 tab PO DAILY #90 tablet 05/22/20 [Rx Last Taken Unknown] metformin 500 mg tablet,extended release 24 hr 500 mg PO BID #90 tablet 05/22/20 [Rx Last Taken Unknown] Allergy/AdvReac Type Severity Reaction Status Date / Time No Known Allergies Allergy Verified 07/22/20 11:59 Family History Sister Diabetes Type 1 Surgical History No history of previous surgery no surgical history Social History Smoking Status: Never smoker alcohol intake: never substance use type: does not use what type of physical activity do you participate in: walking ROS ROS ED Constitutional Constitutional ED: Denies chills or fever(s) Eyes Eyes: Denies blurry vision or change in vision ENT ENT ED: Denies rhinorrhea or sore throat Cardiovascular Cardiovascular: Denies chest pain or palpitations Respiratory/Chest Respiratory/Chest: Denies cough or dyspnea Gastrointestinal Gastrointestinal: Denies nausea or vomiting Genitourinary Genitourinary ED: Denies dysuria or hematuria Musculoskeletal Musculoskeletal: Denies back pain or neck pain Integumentary Denies abscess or rash Neurologic Neurologic: Denies headache(s) or weakness Allergic/Immunologic Allergic/Immunologic ED: Denies mouth swelling or urticaria EXAM Physical Exam Const Vital Signs: 07/22/20 11:56 Temperature 98 F Temperature Source Temporal Pulse Rate 93 Respiratory Rate 20 H Blood Pressure 111/77 Blood Pressure Mean 88 Pulse Ox 98 Oxygen Delivery Method Room Air Positive well nourished and well developed General Appearance ED: well developed HEENT Reports moist mucous membranes Neck supple and no JVD Resp normal respiratory effort and clear to auscultation bilaterally Cardio regular rate, regular rhythm and no murmurs GI normal to inspection, nondistended, normoactive bowel sounds and non-tender Palpation: soft Extremity normal to inspection General Extremety ED: Negative for edema or tenderness General Extremity: Negative for edema Neuro CN's II-XII intact bilaterally and no sensory deficits noted Sensorium / Orientation: alert Motor Exam: strength 5/5 throughout Psych Appearance: other Patient denies any suicidal or homicidal ideations. Mood & Affect: anxious Skin no rashes or lesions noted MDM MDM MDM Narrative Medical decision making narrative: CT scan of the brain was obtained. There is chronic changes but no acute stroke or bleed. This was interpreted by the radiologist and reviewed by myself. Portable 1 view chest x-ray was obtained. On my interpretation, lung galvez are clear. There is normal cardiac silhouette. Bony thorax is normal. There is no acute process noted. Radiologist also interpreted the x-ray and agrees. EKG was obtained. On my interpretation, it showed a normal sinus rhythm with a rate of 79. IN interval and QTc intervals were normal. [place] was normal at -11. There is a left bundle branch block pattern. There are no acute ST or T wave changes. This was unchanged compared to previous EKG dated 02/06/2020. CBC was within normal limits. Comprehensive metabolic profile was within normal limits. Troponin was normal. package worker was in to evaluate the patient. She feels the patient may need to be placed because of his inability to care for himself and his confusion. She will attempt to place the patient in a geropsychiatric unit. Care of the patient will be signed out to the oncoming physician pending placement. Lab Data Attestation: I reviewed the patient's lab results. Labs: Laboratory Results - last 24 hr 07/22/20 07/22/20 13:00 13:00 WBC 7.2 RBC 4.68 Hgb 13.8 Hct 41.2 MCV 88.0 MCH 29.5 MCHC 33.5 RDW Std Deviation 41.1 RDW Coeff of Lacey 12.9 Plt Count 188 MPV 10.8 Immature Gran % (Auto) 0.100 Neut % (Auto) 72.2 H Lymph % (Auto) 17.2 L [place] % (Auto) 8.3 Eos % (Auto) 1.8 Baso % (Auto) 0.4 Absolute Neuts (auto) 5.2 Absolute Lymphs (auto) 1.24 Nucleated RBC % 0 Sodium 141 Potassium 4.3 Chloride 106 Carbon Dioxide 31.0 Anion Gap 4 L BUN 13 Creatinine 1.04 Estim Creat Clear Calc 58.50 Est GFR (MDRD) Af Amer 92 Est GFR (MDRD) Non-Af 76 BUN/Creatinine Ratio 12.5 Glucose 106 Calcium 8.5 Total Bilirubin 0.50 AST 32 ALT 56 Alkaline Phosphatase 104 Troponin I < 0.015 Total Protein 7.3 Albumin 3.6 Globulin 3.7 Albumin/Globulin Ratio 1.0 Radiography Chest X-Ray - ED: 1 View, Read by ED Physician, Read by Radiologist and Normal Diagnostic Testing: Radiology Impression Brain CT 07/22/20 12:12 IMPRESSION: Chronic involutional changes of the brain. Electronically Signed: Anurag Chavira MD at 12:57 EDT , Service support , Chest X-Ray 07/22/20 12:33 IMPRESSION: No acute abnormality is seen. Electronically Signed: Anuarg Chavira MD at 12:54 EDT , Service support , EKG Initial EKG: Attestation: I personally reviewed and interpreted this EKG as follows: Interpretation: Sinus Rhythm (79) and LBBB Prior EKG tracings: available for review Prior: Unchanged (02/06/2020) Discharge Plan Triage Chief Complaint: Mental Health ED Provider: Ebenezer Anna Dx/Rx/DC Orders Prescriptions: No Action amlodipine 5 mg tablet 5 mg PO DAILY Qty: 90 RF: 0 aspirin 81 mg tablet,chewable 81 mg PO DAILY@0800 Qty: 90 RF: 0 losartan-hydrochlorothiazide 50-12.5 mg tablet 1 tab PO DAILY Qty: 90 RF: 0 metformin 500 mg tablet extended release 24 hr 500 mg PO BID Qty: 90 RF: 0 ciprofloxacin HCl [Cipro] 250 mg tablet 250 mg PO BID Qty: 6 RF: 0 atorvastatin 40 mg tablet 40 mg PO QHS Qty: 90 RF: 0 Primary Care Provider: Sandra Barahona
--- NOTE | 2020-07-22 15:15 | CM.ED ---
SOCIAL WORK ASSESSMENT Referral Source: Dr. Anna Reason for Consult: Mental Health Evaluation Chief Compliant: Patient presents to ER by Nataliya OTT. Patient with confusion. Recent hospitalization at [place] and SNF placement at [facility] in [place]. Patient resides in [place]. Marital/Social History: Living Situation: Home alone Support/Resources: Limited. Patient reports has a brother, Luca Santamaria who resides in [place], [place]. History: None Education and Employment History: 11th Grade Mental Health Treatment/History: Patient denies any history of mental health. Triggers/Stressors: Patient repeats himself stating my , she was my everything, it took a toll, it hurt real bad. Coping Skills: Unable to identify coping skills Abuse Issues: Patient denies any history of emotional, physical or sexual abuse. Substance Abuse History: Patient denies any history of substance abuse. Risk to Self/Others: Suicidal- Patient denies any suicidal ideation, plan or intent. Homicidal- Patient denies any homicidal ideation. Mental Status Exam: Orientation- A&Ox2 Memory: poor Appearance/General Behavior: disheveled Mood/Affect: depressed, anxious Communication Pattern: requires extra time, patient with stutter, repeats self Thought Process: paranoid Judgement: poor Insight: Patient identifies his confusion. Patient stating I can't remember anything, so much confusion. Assessment: Patient presents to [facility] ER by Nataliya Police with [place] [facility]. Informed patient was seen in hospital in [place] and was placed in halfway facility. Patient with confusion and paranoia. Patient unable to care for self. Nataliya officer reports patient is known to them and has been decompensating for some time. Officer reports patient did not have electricity or running water in the home and limited food. Officer provided this worker with contact information for patient's landlord, Minnie Woodard ([phone]). Call to Minnie Woodard. Minnie reports patient has been renting from her for 15 years. Minnie states patient's a few years ago and believes patient has family in [place]. Minnie reports patient has not paid rent in 2.5 months. Minnie reports does not want to evict patient, but has started the process. Minnie requesting update if patient agrees. Minnie reports has been in contact with [facility] in which patient was just discharged in [place]. Contact information provided- [phone]. Call to [facility], spoke with Chasity in admissions. Per Chasity, received referral from [place] and states patient was diagnosed with encephalopathy, amnesia. Patient had been found wandering near a hotel and was unable to tell anyone how he came to [place]. Chasity reports patient was admitted to [facility] from 07/11/2020-07/19/[address] [facility] on 07/19/20 patient signed himself out AMA after receiving the COVID-19 vaccine. Chasity states patient was very secretive, he wouldn't give us his social security number until the 2nd to last day he was here. Met with patient in room. Introduced role and reason for referral. Patient appears very anxious. Patient with stutter, repetitive speech, constant blinking, lack of eye contact, and fidgeting during assessment. Patient reports confusion and unable to tell this worker how he got to [place]. Patient states, because of COVID, just confused. Patient discussed 's passing and reports my was everything to me, it took a toll on me, hurt me bad. Patient became tearful. Patient reports hasn't been able to sleep. Patient denied any history of mental health or substance abuse. Patient wanting help. informed [facility] concerned and requests update. Patient gave permission for this worker to contact [facility]. Patient reports does have money to pay for rent and utilities, but unable to recall where he [place]. Much emotional support and education provided throughout. Call to Adult Prote[facility] Services to discuss the above and complete report, spoke with Kong. Kong riley is aware of patient and received report from [place]. Kong in agreement with [facility]-psych hospitalization and [facility] will follow up. Collaboration with Dr. Anna. Recommending [facility] for stabilization. This worker to facilitate placement. Plan: Referral to [facility]psych Hernando Nguyen MSW, KE[place]MITH
--- NOTE | 2020-07-22 15:16 | EKG12_ITS ---
Test Reason : Blood Pressure : / mmHG Vent. Rate : 079 BPM Atrial Rate : 079 BPM P-R Int : 168 ms QRS Dur : 148 ms QT Int : 424 ms P-R-T Axes : 038 -11 147 degrees QTc Int : 486 ms Normal sinus rhythm Left bundle branch block Abnormal ECG Confirmed by GE HAWLEY, FRANTZ ([id number]), restaurant expeditor VILMA PALMA ([id number]) on 07/25/2020 9:58:05 AM Referred By: ALEXIS Confirmed By:FRANTZ CAROLINA MD
[2020-07-22 16:33] VITALS: BP 119/71; PULSE 77; RESP 18; O2SAT 99
--- NOTE | 2020-07-22 16:44 | CM.ED ---
SOCIAL WORK Referral faxed and called to Meche at [facility]. Hernando Nguyen, PIGMENT PROCESSOR, STRATEGIC ACCOUNT EXECUTIVE
[2020-07-22 16:51] LABS: Bacteria 0 SEEN /hpf (None Seen); Mucous, Urine 0 SEEN /hpf (<or=2+); Red Blood Cells-Urine 0 SEEN /hpf (0-5); White Blood Cells 0 SEEN /hpf (0-5)
[2020-07-22 17:01] LABS: Color, Urine Yellow (Yellow); Glucose, Dipstick 100 mg/dl (Normal); Ketone-Dipstick Negative (Negative); Leukocyte Esterase-Dipstick Negative /ul (Negative); Nitrite-Dipstick Negative (Negative); Occult Blood-Urine Negative /ul (Negative); Protein-Dipstick Negative (Negative); Urine Bilirubin Dipstick Negative (Negative); Urine Clarity Sl. Cloudy (Clear); Urine Urobilinogen Normal (Normal)
[2020-07-22 17:13] LABS: Squamous Epithelial Cells - UA 0-5 SEEN /hpf (0-5)
[2020-07-22 17:57] LABS: Amphetamine Urine VISTA NEGATIVE (<1000 ng/mL); Barbiturate Urine VISTA NEGATIVE (< 200 ng/mL); Benzodiazepine Urine VISTA NEGATIVE (< 200 ng/mL); Cocaine Urine VISTA NEGATIVE (< 300 ng/mL); Ecstacy Urine VISTA NEGATIVE (< 500 ng/mL); Methadone Urine VISTA NEGATIVE (< 300 ng/mL); PCP Urine VISTA NEGATIVE (< 25 ng/mL); THC Urine VISTA NEGATIVE (< 50 ng/mL); Vista UDS pH Range 6
[2020-07-22 18:00] VITALS: RESP 14
--- NOTE | 2020-07-22 18:00 | CM.ED ---
SOCIAL WORK Spoke with Meche from [facility], referral under review. Awaiting acceptance at this time. Hernando Nguyen, FLATWORK FEEDER, TRAVEL PT
--- NOTE | 2020-07-22 18:49 | CM.ED ---
SOCIAL WORK Call to [facility] to check on status of referral. Still under review at this time. Awaiting call back from intake. Hernando Nguyen, SUPPORT STAFF, JIG BORE OPERATOR
--- NOTE | 2020-07-22 19:56 | CM.ED ---
SOCIAL WORK Informed by meteorologist in charge, Dakota, patient has been accepted to [facility]. Machine Feeder to set up transport. Dakota received accepting information. Plan: [facility] Nguyen, OIL CHANGE TECHNICIAN, COUNSELOR AT LAW
[2020-07-22 19:57] VITALS: BP 132/76; PULSE 87; RESP 18; O2SAT 98
== END 2020-07-22 20:24 ==
PROVIDERS: Emergency Medicine; Emergency Provider Student in an Organized Health Care Education/Training Program; PCP Internal Medicine
DX: R41.0 Disorientation, unspecified (principal); I44.7 Left bundle-branch block, unspecified; E78.00 Pure hypercholesterolemia, unspecified; I10 Essential (primary) hypertension; Z79.82 Long term (current) use of aspirin; Z79.84 Long term (current) use of oral hypoglycemic drugs; Z79.899 Other long term (current) drug therapy
CPT/HCPCS: 70450; 71045; 80053; 80307; 81001; 84484; 85025; 87426; 93005; 99284

== ENCOUNTER 2020-08-24 15:52 | Emergency (ER) | payer MEDICARE, BC, SELFPAY ==
[2020-08-24 15:53] VITALS: BP 160/89; PULSE 78; RESP 16; TEMP 36.5; O2SAT 98; BMI 21.4
--- NOTE | 2020-08-24 16:42 | RAD_ITS ---
INDICATION: WEAKNESS EXAMINATION/TECHNIQUE: X-RAY - XR Chest 1 View COMPARISON: 07/22/2020. FINDINGS: The lungs are clear. The cardiomediastinal silhouette is unremarkable. No pleural effusion or pneumothorax. No acute osseous abnormalities. RAD/Chest 1 View (Portable) IMPRESSION: No acute radiographic abnormalities. Electronically Signed: Burke España MD at 17:36 EDT Tel , Service support ,
--- NOTE | 2020-08-24 16:51 | EX.ED.DYSGE1 ---
HPI History of Present Illness Chief Complaint: Weakness Narrative Narrative: 64-year-old male presenting with generalized weakness. He states he has not had any falls. He denies fever or chills. He has nausea without vomiting. Patient states he does have dysuria and he has had a UTI in the past. He denies history of kidney stones. Patient also complains that his eyes are burning because of his seasonal allergies. He is using an [id number] saline which is not helping. He states he is not taking anything else for allergies currently. He denies chest pain, palpitations, shortness of breath. [facility] Medical History Cataract Depression Hypercholesterolemia Hypertension Type 2 diabetes mellitus Home Medications amlodipine 5 mg tablet 5 mg PO DAILY #90 tablet 05/22/20 [Rx Last Taken Unknown] aspirin 81 mg chewable tablet 81 mg PO DAILY@0800 #90 tablet 05/22/20 [Rx Last Taken Unknown] atorvastatin 40 mg tablet 40 mg PO QHS #90 tablet 05/22/20 [Rx Last Taken Unknown] losartan 50 mg-hydrochlorothiazide 12.5 mg tablet 1 tab PO DAILY #90 tablet 05/22/20 [Rx Last Taken Unknown] metformin 500 mg tablet,extended release 24 hr 500 mg PO BID #90 tablet 05/22/20 [Rx Last Taken Unknown] loratadine [Claritin] 10 mg PO DAILY #30 tab 08/24/20 [Rx Last Taken Unknown] naphazoline-pheniramine [Eye Allergy Relief] 1 drp EACH EYE TID PRN #15 ml 08/24/20 [Rx Last Taken Unknown] Allergy/AdvReac Type Severity Reaction Status Date / Time No Known Allergies Allergy Verified 07/22/20 11:59 Family History Sister Diabetes Type 1 Surgical History No history of previous surgery Social History Smoking Status: Never smoker alcohol intake: never substance use type: does not use what type of physical activity do you participate in: walking ROS ROS ED Constitutional Constitutional ED: Reports other Details: Generalized weakness ; Denies chills or fever(s) Eyes Eyes: Reports other Details: Itchy and burning ; Denies blurry vision or diplopia ENT ENT ED: Denies rhinorrhea or sore throat Cardiovascular Cardiovascular: Denies chest pain or palpitations Respiratory/Chest Respiratory/Chest: Denies cough or dyspnea Gastrointestinal Gastrointestinal: Reports nausea; Denies abdominal pain Genitourinary Genitourinary ED: Reports dysuria and urinary frequency; Denies hematuria Musculoskeletal Musculoskeletal: Denies arthralgias or myalgias Integumentary Denies abscess or rash Neurologic Neurologic: Denies headache(s) or paresthesias Psychiatric Psychiatric: Denies anxiety or depression EXAM Physical Exam Const Vital Signs: 08/24/20 15:53 08/24/20 16:14 Temperature 97.7 F L Temperature Source Temporal Pulse Rate 78 Respiratory Rate 16 Respiratory Effort Normal Non-Labored Respiratory Pattern Normal Blood Pressure 160/89 H Blood Pressure Mean 112 Pulse Ox 98 Oxygen Delivery Method Room Air Positive well nourished General Appearance ED: NAD HEENT Reports moist mucous membranes Negative for trauma Eyes PERRL and EOMs intact bilaterally Eyes Narrative: Bilateral eyes are injected. Neck no lymphadenopathy and supple Resp normal respiratory effort and clear to auscultation bilaterally Cardio regular rate and regular rhythm GI normal to inspection, nondistended, normoactive bowel sounds Neuro oriented x3 and CN's II-XII intact bilaterally Sensorium / Orientation: alert Psych mental status grossly normal Skin no rashes or lesions noted and no wounds MDM MDM MDM Narrative Medical decision making narrative: Patient presented with generalized weakness without any specific complaint except for dysuria. Patient has not had fever, chills, shortness of breath, chest pain, nausea, vomiting. He does express that his eyes are irritated and he does admit that he has allergies and does not take anything for them. I did do blood work which is all within normal limits. Urinalysis is negative. His vital signs are stable and he is afebrile. I did obtain a chest x-ray which on my interpretation shows no acute cardiopulmonary process and the radiologist does agree. At this point I will write a prescription for some allergic eyedrops and Claritin. He is counseled to follow-up with his PCP. He is given return precautions. Impression: 1. Allergic conjunctivitis 2. Seasonal allergies 3. Generalized weakness unknown cause Lab Data Labs: Laboratory Results - last 24 hr 08/24/20 08/24/2008/24/21 16:55 16:55 17:30 WBC 6.4 RBC 4.04 L Hgb 12.0 L Hct 36.3 L MCV 89.9 MCH 29.7 MCHC 33.1 RDW Std Deviation 46.7 H RDW Coeff of Lacey 14.5 Plt Count 176 MPV 11.4 Immature Gran % (Auto) 0.300 Neut % (Auto) 70.2 H Lymph % (Auto) 17.6 L [place] % (Auto) 8.0 Eos % (Auto) 3.6 Baso % (Auto) 0.3 Absolute Neuts (auto) 4.5 Absolute Lymphs (auto) 1.12 Nucleated RBC % 0 Sodium 140 Potassium 3.9 Chloride 108 H Carbon Dioxide 25.0 Anion Gap 7 BUN 15 Creatinine 1.02 Estim Creat Clear Calc 57.13 Est GFR (MDRD) Af Amer 94 Est GFR (MDRD) Non-Af 78 BUN/Creatinine Ratio 14.7 Glucose 125 H Calcium 8.2 L Total Bilirubin 0.30 AST 24 ALT 39 Alkaline Phosphatase 103 Total Protein 6.5 Albumin 3.2 Globulin 3.3 Albumin/Globulin Ratio 1.0 Urine Color Yellow Urine Clarity Clear Urine pH 6.0 Ur Specific [place] 1.015 Urine Protein Negative Urine Glucose (UA) Normal Urine Ketones Negative Urine Occult Blood Negative Urine Nitrite Negative Urine Bilirubin Negative Urine Urobilinogen Normal Ur Leukocyte Esterase Negative Urine RBC 0 SEEN Urine WBC 0 SEEN Ur Squamous Epith Cells 0 SEEN Urine Bacteria 0 SEEN Hyaline Casts 0-5 SEEN Urine Mucus 1+ Radiography Diagnostic Testing: Radiology Impression Chest X-Ray 08/24/20 16:42 IMPRESSION: No acute radiographic abnormalities. Electronically Signed: Burke España MD at 17:36 EDT Tel , Service support , Discharge Plan Triage Chief Complaint: Weakness ED Provider: Yash Perez Dx/Rx/DC Orders Prescriptions: New Eye Allergy Relief 0.025-0.3 % drops 1 drp EACH EYE TID PRN (Reason: eye irritation) Qty: 15 RF: 0 loratadine [Claritin] 10 mg tablet 10 mg PO DAILY Qty: 30 RF: 0 No Action amlodipine 5 mg tablet 5 mg PO DAILY Qty: 90 RF: 0 aspirin 81 mg tablet,chewable 81 mg PO DAILY@0800 Qty: 90 RF: 0 losartan-hydrochlorothiazide 50-12.5 mg tablet 1 tab PO DAILY Qty: 90 RF: 0 metformin 500 mg tablet extended release 24 hr 500 mg PO BID Qty: 90 RF: 0 atorvastatin 40 mg tablet 40 mg PO QHS Qty: 90 RF: 0 Primary Care Provider: Sandra Barahona Referrals: Sandra Barahona MD [Primary Care Provider] - Disposition Disposition: Home, Self Care
[2020-08-24] MEDS: Ondansetron 4 MG/2 ML Vial IV (17:11)
[2020-08-24 17:18] LABS: AST(SGOT) 24 U/L (15-37); Alanine Aminotransfer ALT/SGPT 39 U/L (16-61); Albumin, Serum 3.2 g/dL (3.2-5.0); Alkaline Phosphatase 103 U/L (45-117); Anion Gap 7 (5-15); BUN 15 mg/dL (7-18); BUN/Creat Ratio 14.7 RATIO (10-20); Calcium,Total 8.2 mg/dL (8.5-10.1); Chloride 108 mmol/L (98-107); Creatinine, Serum 1.02 mg/dL (0.70-1.30); EST Glomerular Filtration Rate 78 mL/min (>60); Est Glom Filt Rate - Afr Amer 94 mL/min (>60); Estimated Creatinine Clearance 57.13 ml/min; Globulin 3.3 g/dL (2.2-4.2); Glucose 125 mg/dL (74-106); Potassium 3.9 mmol/L (3.5-5.1); Protein, Total 6.5 g/dL (6.4-8.2); Sodium Level 140 mmol/L (136-145)
[2020-08-24 17:20] LABS: Absolute Lymphocyte Count 1.12 X10^3/uL (0.83-4.51); Absolute Neutrophil Count 4.5 X10^3/uL (2.0-7.7); Basophil# 0.02 X10^3/uL; Basophil% 0.3 % (0-1); Eosinophil# 0.23 X10^3/uL; Eosinophils% 3.6 % (0-5); Hematocrit 36.3 % (40-54); Lymphocyte # 1.12 X10^3/ul (0.83-4.51); Lymphocyte % 17.6 % (19-41); Mean Corp Hgb Conc 33.1 g/dL (32-36); Mean Corpuscular Hgb 29.7 pg (27.0-32.0); Mean Corpuscular Volume 89.9 fL (80-94); Mean Platelet Vol. 11.4 fl (6.2-12.0); Monocyte# 0.51 X10^3/uL; NRBC Flagged by Analyzer 0 % (0-5); Neutrophil # 4.47 X10^3/uL (2.7-7.7); Neutrophil % 70.2 % (47-70); Platelet Count 176 K/mm3 (150-450); RBC Distribution Width CV 14.5 % (11.6-14.6); RBC Distribution Width SD 46.7 fl (35.1-43.9); Red Blood Count 4.04 M/mm3 (4.6-6.2); White Blood Count 6.4 K/mm3 (4.4-11.0)
[2020-08-24 17:39] LABS: Bacteria 0 SEEN /hpf (None Seen); Red Blood Cells-Urine 0 SEEN /hpf (0-5); Squamous Epithelial Cells - UA 0 SEEN /hpf (0-5); White Blood Cells 0 SEEN /hpf (0-5)
[2020-08-24 17:44] LABS: Color, Urine Yellow (Yellow); Glucose, Dipstick Normal (Normal); Ketone-Dipstick Negative (Negative); Leukocyte Esterase-Dipstick Negative /ul (Negative); Nitrite-Dipstick Negative (Negative); Occult Blood-Urine Negative /ul (Negative); Protein-Dipstick Negative (Negative); Specific Gravity, Urine 1.015 (1.002-1.030); Urine Bilirubin Dipstick Negative (Negative); Urine Clarity Clear (Clear); Urine Urobilinogen Normal (Normal)
[2020-08-24 17:59] LABS: Mucous, Urine 1+ /hpf (<or=2+)
[2020-08-24 18:01] LABS: Hyaline Cast 0-5 SEEN /lpf (0-5)
[2020-08-24 18:37] VITALS: RESP 18
== END 2020-08-24 18:37 | disposition home or self-care (01) ==
PROVIDERS: Emergency Provider Student in an Organized Health Care Education/Training Program; PCP Internal Medicine
DX: R53.1 Weakness (principal); H10.10 Acute atopic conjunctivitis, unspecified eye; E11.36 Type 2 diabetes mellitus with diabetic cataract; E78.00 Pure hypercholesterolemia, unspecified; F32.9 Major depressive disorder, single episode, unspecified; I10 Essential (primary) hypertension; Z79.84 Long term (current) use of oral hypoglycemic drugs; Z79.82 Long term (current) use of aspirin; Z87.440 Personal history of urinary (tract) infections
CPT/HCPCS: 71045; 80053; 81001; 85025; 99285; A4216; J2405

== ENCOUNTER 2020-08-26 11:49 | Emergency (ER) | payer MEDICARE, BC, SELFPAY ==
[2020-08-26 11:49] VITALS: BP 141/75; PULSE 98; RESP 16; TEMP 36.6; O2SAT 92; BMI 22.1
--- NOTE | 2020-08-26 12:35 | EKG12_ITS ---
Test Reason : WEAKNESS Blood Pressure : / mmHG Vent. Rate : 074 BPM Atrial Rate : 074 BPM P-R Int : 156 ms QRS Dur : 138 ms QT Int : 410 ms P-R-T Axes : 038 -15 160 degrees QTc Int : 455 ms Normal sinus rhythm Left bundle branch block Abnormal ECG Confirmed by ALICIA HAWLEY, DEVYN ([id number]), magazine editor VILMA PALMA ([id number]) on 08/28/2020 12:33:56 PM Referred By: MR Confirmed By:DEVYN VARGAS MD
--- NOTE | 2020-08-26 12:35 | RAD_ITS ---
STUDY: X-RAY CHEST REASON FOR EXAM: Male, 64 years old. Weakness TECHNIQUE: PA and lateral views of the chest. COMPARISON: Comparison is made with prior study dated 08/24/2020. FINDINGS: EKG electrodes are seen. The lungs are clear and expanded. There is no demonstrated pleural abnormality. Normal size heart. Normal mediastinum and dede. Normal visualized pulmonary arteries. Normal visualized aortic arch and descending thoracic aorta. There are diffuse degenerative changes of the visualized thoracic spine. Normal visualized ribs, clavicles, and shoulders. There is no demonstrated abnormality of the visualized soft tissue structures of the upper abdomen. RAD/Chest PA and Lateral IMPRESSION: No acute abnormality is seen. Electronically Signed: Anurag Chavira MD at 13:27 EDT , Service support ,
--- NOTE | 2020-08-26 12:35 | CT_ITS ---
STUDY: CT BRAIN WITHOUT CONTRAST REASON FOR EXAM: Male, 64 years old. Weakness RADIATION DOSAGE (If Supplied By Facility): CTDIvol = ( 44.99 ) mGy, DLP = ( 762.36 ) mGycm TECHNIQUE: Transaxial CT imaging of the brain was performed without administration of intravenous contrast material. Individualized dose optimization techniques were used for this CT. COMPARISON: No relevant priors. FINDINGS: Normal soft tissue structures. Normal calvarium. There is mild cerebral atrophy with widening of the extra-axial spaces and ventricular dilatation. There are areas of decreased attenuation within the white matter tracts of the supratentorial brain, consistent with microvascular disease changes. There are small punctate calcifications of the basal ganglia which are seen in the aging brain as a normal variant. Old lacunar infarct in the left basal ganglion. Normal brainstem. There is mild cerebellar atrophy. There is no intracranial hemorrhage. There are no findings of an acute ischemic infarction. Partial opacification of the right sphenoid sinus. CT/Brain/Head without Contrast IMPRESSION: Chronic involutional changes of the brain. Stable examination. Electronically Signed: Anurag Chavira MD at 13:27 EDT , Service support ,
[2020-08-26 12:51] LABS: Absolute Lymphocyte Count 0.96 X10^3/uL (0.83-4.51); Absolute Neutrophil Count 4.8 X10^3/uL (2.0-7.7); Basophil# 0.04 X10^3/uL; Basophil% 0.6 % (0-1); Eosinophil# 0.13 X10^3/uL; Hematocrit 36.2 % (40-54); Hemoglobin 12.3 g/dL (13.0-16.5); Lymphocyte # 0.96 X10^3/ul (0.83-4.51); Lymphocyte % 15.1 % (19-41); Mean Corpuscular Hgb 30.2 pg (27.0-32.0); Mean Corpuscular Volume 88.9 fL (80-94); Mean Platelet Vol. 11.1 fl (6.2-12.0); Monocyte# 0.46 X10^3/uL; Monocyte% 7.2 % (0-10); NRBC Flagged by Analyzer 0 % (0-5); Neutrophil # 4.75 X10^3/uL (2.7-7.7); Neutrophil % 74.8 % (47-70); Platelet Count 185 K/mm3 (150-450); RBC Distribution Width CV 14.4 % (11.6-14.6); RBC Distribution Width SD 45.9 fl (35.1-43.9); Red Blood Count 4.07 M/mm3 (4.6-6.2); White Blood Count 6.4 K/mm3 (4.4-11.0)
[2020-08-26 13:16] LABS: AST(SGOT) 15 U/L (15-37); Alanine Aminotransfer ALT/SGPT 36 U/L (16-61); Albumin, Serum 3.2 g/dL (3.2-5.0); Alkaline Phosphatase 99 U/L (45-117); Anion Gap 6 (5-15); BUN 14 mg/dL (7-18); BUN/Creat Ratio 11.9 RATIO (10-20); Calcium,Total 8.1 mg/dL (8.5-10.1); Chloride 108 mmol/L (98-107); Creatinine, Serum 1.18 mg/dL (0.70-1.30); EST Glomerular Filtration Rate 66 mL/min (>60); Est Glom Filt Rate - Afr Amer 79 mL/min (>60); Estimated Creatinine Clearance 50.87 ml/min; Globulin 3.2 g/dL (2.2-4.2); Glucose 190 mg/dL (74-106); Potassium 3.6 mmol/L (3.5-5.1); Protein, Total 6.4 g/dL (6.4-8.2); Sodium Level 143 mmol/L (136-145)
[2020-08-26 13:43] LABS: Red Blood Cells-Urine 0 SEEN /hpf (0-5); Squamous Epithelial Cells - UA 0 SEEN /hpf (0-5)
[2020-08-26 13:53] LABS: Color, Urine Yellow (Yellow); Glucose, Dipstick Normal (Normal); Ketone-Dipstick Negative (Negative); Leukocyte Esterase-Dipstick Negative /ul (Negative); Nitrite-Dipstick Negative (Negative); Occult Blood-Urine Negative /ul (Negative); Protein-Dipstick 15 mg/dl (Negative); Urine Bilirubin Dipstick Negative (Negative); Urine Clarity Clear (Clear); Urine Urobilinogen Normal (Normal)
--- NOTE | 2020-08-26 14:00 | CM.ED ---
SOCIAL WORK Referral Source: Dr. Hensley Reason for Consult: Discharge Planning Patient known to this worker from previous visits. Report has been made to Adult Protective Services from previous visits. Met with patient in room. Introduced role and reason for referral. Patient states living home alone at [address] [place] [address] and drove self to ER. Patient reports is out of medications and has not made an appointment with PCP-Dr. Barahona. Patient states has been feeling weak and believes he would benefit from b12 shot. Patient was seen on 08/24/20 for general weakness. Work up was negative and patient was dishcarged home. Offered to make follow up appointment for patient to get medications refilled and to be seen by PCP. Patient in agreement. Call to patient's pharmacy[facility]. Per estevan, patient does not have any refills on medications. Call to Dr. Barahona's office. Patient has not been seen in office since May. Appointment scheduled for 09/03/20 at 11am with Guevara Mejía NP. Call to Adult Protective Services, spoke with Kong. Per Kong, patient is being evicted from home. Informed Kong patient reports is still residing at [address] [place] [address]. Informed Kong this worker will discuss assisted living with patient and provide list. Informed patient of appointments and follow up with Adult Protective Services. Patient states is still living in home and admits to not paying rent. Education provided on assisted living and how it could benefit patient. List provided. Patient denies any questions or concerns. Plan: Home with resources provided. APS aware of visit. Hernando Nguyen, RECYCLING TECHNICIAN, GIFTED TEACHER
[2020-08-26 14:04] LABS: White Blood Cells 0-5 SEEN /hpf (0-5)
[2020-08-26 14:05] LABS: Bacteria RARE /hpf (None Seen); Mucous, Urine 3+ /hpf (<or=2+)
[2020-08-26] MEDS: Cyanocobalamin (B12) 1,000 MCG/ML Vial 500 MCG IM (14:22)
--- NOTE | 2020-08-26 14:25 | EDS_ITS ---
HPI History of Present Illness Chief Complaint: Weakness Narrative Narrative: Patient presenting for evaluation secondary to generalized weakness. Patient has a underlying history of hypertension diabetes, and some psychiatric history. Patient apparently was here a day or so ago complaining of generalized weakness had a broad work-up obtained that was found to be negative and was discharged home. Patient states that he is continuing to have weakness and has had this for a total of about a week now. He states that it associated with a feeling of generalized fatigue. Is not lateralizing, there is no visual changes numbness or speech difficulty associated with it. Patient denies infectious signs or symptoms such as fever cough sore throat nausea vomiting abdominal pain dysuria hematuria. Patient does also have a history of hypothyroidism, no recent changes in his medication dosage. Review of systems otherwise negative. [facility] Medical History Cataract Depression Hypercholesterolemia Hypertension Type 2 diabetes mellitus Home Medications amlodipine 5 mg tablet 5 mg PO DAILY #90 tablet 05/22/20 [Rx Last Taken Unknown] aspirin 81 mg chewable tablet 81 mg PO DAILY@0800 #90 tablet 05/22/20 [Rx Last Taken Unknown] atorvastatin 40 mg tablet 40 mg PO QHS #90 tablet 05/22/20 [Rx Last Taken Unk nown] losartan 50 mg-hydrochlorothiazide 12.5 mg tablet 1 tab PO DAILY #90 tablet 05/22/20 [Rx Last Taken Unknown] metformin 500 mg tablet,extended release 24 hr 500 mg PO BID #90 tablet 05/22/20 [Rx Last Taken Unknown] loratadine [Claritin] 10 mg PO DAILY #30 tab 08/24/20 [Rx Last Taken Unknown] naphazoline-pheniramine [Eye Allergy Relief] 1 drp EACH EYE TID PRN #15 ml 08/24/20 [Rx Last Taken Unknown] Allergy/AdvReac Type Severity Reaction Status Date / Time No Known Allergies Allergy Verified 08/26/20 11:49 Family History Sister Diabetes Type 1 Surgical History No history of previous surgery Social History Smoking Status: Never smoker alcohol intake: never substance use type: does not use what type of physical activity do you participate in: walking ROS ROS ED Constitutional Constitutional ED: Reports other Details: Generalized weakness ; Denies chills or fever(s) ENT ENT ED: Denies rhinorrhea Cardiovascular Cardiovascular: Denies chest pain Respiratory/Chest Respiratory/Chest: Denies cough or dyspnea Gastrointestinal Gastrointestinal: Denies abdominal pain, diarrhea, nausea or vomiting Genitourinary Genitourinary ED: Denies dysuria or hematuria Musculoskeletal Musculoskeletal: Denies back pain Integumentary Denies rash Neurologic Neurologic: Denies paresthesias or weakness Psychiatric Psychiatric: Denies depression Endocrine Endocrinology: Denies fatigue Allergic/Immunologic Allergic/Immunologic ED: Denies urticaria EXAM Physical Exam Const Vital Signs: 08/26/20 11:49 08/26/20 13:06 Temperature 97.8 F Temperature Source Temporal Pulse Rate 98 Respiratory Rate 16 Respiratory Effort Normal Non-Labored Respiratory Pattern Normal Blood Pressure 141/75 H Blood Pressure Mean 97 Pulse Ox 92 Oxygen Delivery Method Room Air Positive well nourished and well developed General Appearance ED: well developed and NAD HEENT Reports moist mucous membranes Negative for trauma or tenderness Eyes PERRL and EOMs intact bilaterally Eyes Narrative: Patient blinks very frequently which appears to be a tic Neck no lymphadenopathy, supple and no JVD Chest Wall inspection of chest normal Resp normal respiratory effort and clear to auscultation bilaterally Cardio regular rate, regular rhythm, no murmurs and peripheral pulses 2+ throughout GI normal to inspection, nondistended, normoactive bowel sounds, non-tender and no masses Palpation: soft Back/Spine normal to inspection Extremity normal to inspection General Extremety ED: Negative for tenderness Neuro oriented x3 and no sensory deficits noted Neuro Narrative: No documentable weakness with 5 out of 5 strength. NIH stroke scale is zero. Sensorium / Orientation: alert Motor Exam: strength 5/5 throughout Psych mental status grossly normal Skin no rashes or lesions noted MDM MDM MDM Narrative Medical decision making narrative: Patient presented secondary to generalized weakness. I reviewed his records from the previous visits that showed a negative work-up. Broader work-up was obtained. CBC was repeated and was found to be unremarkable, chemistry was found to be unremarkable no signs of kidney dysfunction or electrolyte derangement liver profile was found to be within normal limits glucose was mildly high at 190. Troponin was found to be negative. TSH was within normal limits. Urinalysis shows no signs of infection. Perform CT imaging of the patient's brain which was found to be negative, chest x-ray by my personal review as well as radiology is negative. EKG as noted below was unchanged. Patient told me that he thinks that partially this is because he has been getting his B12 shots I did give him a dose of that in the emergency department. Social work saw the patient, was able to arrange for the patient to see his primary care physician next week to have his medications restarted which she states that he has been off of for quite some time. I do not think that the patient requires admission at this point. Patient was discharged in stable condition. Lab Data Labs: Laboratory Results - last 24 hr 08/26/20 08/26/20 08/26/20 12:45 12:45 13:35 WBC 6.4 RBC 4.07 L Hgb 12.3 L Hct 36.2 L MCV 88.9 MCH 30.2 MCHC 34.0 RDW Std Deviation 45.9 H RDW Coeff of Lacey 14.4 Plt Count 185 MPV 11.1 Immature Gran % (Auto) 0.300 Neut % (Auto) 74.8 H Lymph % (Auto) 15.1 L [place] % (Auto) 7.2 Eos % (Auto) 2.0 Baso % (Auto) 0.6 Absolute Neuts (auto) 4.8 Absolute Lymphs (auto) 0.96 Nucleated RBC % 0 Sodium 143 Potassium 3.6 Chloride 108 H Carbon Dioxide 29.0 Anion Gap 6 BUN 14 Creatinine 1.18 Estim Creat Clear Calc 50.87 Est GFR (MDRD) Af Amer 79 Est GFR (MDRD) Non-Af 66 BUN/Creatinine Ratio 11.9 Glucose 190 H Calcium 8.1 L Total Bilirubin 0.60 AST 15 ALT 36 Alkaline Phosphatase 99 Troponin I High Sens 11.0 Total Protein 6.4 Albumin 3.2 Globulin 3.2 Albumin/Globulin Ratio 1.0 TSH 1.60 Urine Color Yellow Urine Clarity Clear Urine pH 7.0 Ur Specific [place] 1.010 Urine Protein 15 H Urine Glucose (UA) Normal Urine Ketones Negative Urine Occult Blood Negative Urine Nitrite Negative Urine Bilirubin Negative Urine Urobilinogen Normal Ur Leukocyte Esterase Negative Urine RBC 0 SEEN Urine WBC 0-5 SEEN Ur Squamous Epith Cells 0 SEEN Urine Bacteria RARE Urine Mucus 3+ Radiography Chest X-Ray - ED: 2 View, Read by ED Physician and Normal Diagnostic Testing: Radiology Impression Brain CT 08/26/20 12:35 IMPRESSION: Chronic involutional changes of the brain. Stable examination. Electronically Signed: Anurag Chavira MD at 13:27 EDT , Service support , Chest X-Ray 08/26/20 12:35 IMPRESSION: No acute abnormality is seen. Electronically Signed: Anurag Chavira MD at 13:27 EDT , Service support , EKG Initial EKG: Attestation: I personally reviewed and interpreted this EKG as follows: ( Left bundle branch block with sinus rhythm 74 no evidence of acute changes. No change from prior EKG.) Discharge Plan Triage Chief Complaint: Weakness ED Provider: Dereck Hensley Dx/Rx/DC Orders Clinical Impression: Generalized weakness Instructions: ED Weakness (Uncertain Cause) Prescriptions: No Action amlodipine 5 mg tablet 5 mg PO DAILY Qty: 90 RF: 0 aspirin 81 mg tablet,chewable 81 mg PO DAILY@0800 Qty: 90 RF: 0 losartan-hydrochlorothiazide 50-12.5 mg tablet 1 tab PO DAILY Qty: 90 RF: 0 metformin 500 mg tablet extended release 24 hr 500 mg PO BID Qty: 90 RF: 0 atorvastatin 40 mg tablet 40 mg PO QHS Qty: 90 RF: 0 Eye Allergy Relief 0.025-0.3 % drops 1 drp EACH EYE TID PRN (Reason: eye irritation) Qty: 15 RF: 0 loratadine [Claritin] 10 mg tablet 10 mg PO DAILY Qty: 30 RF: 0 Primary Care Provider: Sandra Barahona Referrals: Sandra Barahona MD [Primary Care Provider] - Guevara Mejía NP, [employer] [Nurse Practitioner] - 09/03/20 11:00 am Disposition Disposition: Home, Self Care
[2020-08-26 14:48] VITALS: BP 173/88; PULSE 75; RESP 16; O2SAT 100
--- NOTE | 2020-08-26 14:49 | ED.RN ---
REVIEWED D/C INSTRUCTIONS, FOLLOW UP CARE, AND S/S THAT WOULD WARRANT A RETURN TO THE ED WITH PT. PT VERBALIZED AN UNDERSTANDING AND DENIES FURTHER QUESTIONS FOR THIS RN. PT SKIN P/W/D, RESP EVEN AND UNLABORED, PT A&O X 3, NO DISTRESS NOTED. PT AMBULATED OUT OF ED, GAIT STEADY.
== END 2020-08-26 14:50 | disposition home or self-care (01) ==
PROVIDERS: Emergency Provider Emergency Medicine; PCP Internal Medicine
DX: R53.1 Weakness (principal); I44.7 Left bundle-branch block, unspecified; F32.9 Major depressive disorder, single episode, unspecified; E78.00 Pure hypercholesterolemia, unspecified; I10 Essential (primary) hypertension; E11.9 Type 2 diabetes mellitus without complications; E03.9 Hypothyroidism, unspecified
CPT/HCPCS: 70450; 71046; 80053; 81001; 84443; 84484; 85025; 93005; 96372; 99283; J3420

== ENCOUNTER 2020-08-28 09:57 | Emergency (ER) | payer MEDICARE, BC, SELFPAY ==
[2020-08-28 09:58] VITALS: BP 145/86; PULSE 91; RESP 16; TEMP 36.2; O2SAT 96; BMI 21.4
--- NOTE | 2020-08-28 10:12 | EDS_ITS ---
HPI History of Present Illness Chief Complaint: Weakness Narrative Narrative: 64-year-old male presenting with generalized weakness. He states he is not falling. He has been seen twice in the last few days for similar symptoms. He had 2 full lab work-up was occluding TSH, CT brain, chest x-ray which was all normal. He has no change in his symptoms. When I initially saw him a few days ago he was complaining of dysuria however his urinalysis was negative. Patient apparently saw social work on his last visit and was supposed to have a follow-up appointment for next Wednesday. [facility] Medical History Cataract Depression Hypercholesterolemia Hypertension Type 2 diabetes mellitus Home Medications amlodipine 5 mg tablet 5 mg PO DAILY #90 tablet 05/22/20 [Rx Last Taken Unknown] aspirin 81 mg chewable tablet 81 mg PO DAILY@0800 #90 tablet 05/22/20 [Rx Last Taken Unknown] atorvastatin 40 mg tablet 40 mg PO QHS #90 tablet 05/22/20 [Rx Last Taken Unknown] losartan 50 mg-hydrochlorothiazide 12.5 mg tablet 1 tab PO DAILY #90 tablet 05/22/20 [Rx Last Taken Unknown] metformin 500 mg tablet,extended release 24 hr 500 mg PO BID #90 tablet 05/22/20 [Rx Last Taken Unknown] loratadine [Claritin] 10 mg PO DAILY #30 tab 08/24/20 [Rx Last Taken Unknown] naphazoline-pheniramine [Eye Allergy Relief] 1 drp EACH EYE TID PRN #15 ml 08/24/20 [Rx Last Taken Unknown] Allergy/AdvReac Type Severity Reaction Status Date / Time No Known Allergies Allergy Verified 08/28/20 09:57 Family History Sister Diabetes Type 1 Surgical History No history of previous surgery Social History Smoking Status: Never smoker alcohol intake: never substance use type: does not use what type of physical activity do you participate in: walking ROS ROS ED Constitutional Constitutional ED: Reports other Details: Generalized weakness ; Denies chills or fever(s) Eyes Eyes: Denies blurry vision or diplopia ENT ENT ED: Denies rhinorrhea or sore throat Cardiovascular Cardiovascular: Denies chest pain or palpitations Respiratory/Chest Respiratory/Chest: Denies cough or dyspnea Gastrointestinal Gastrointestinal: Denies abdominal pain, nausea or vomiting Genitourinary Genitourinary ED: Denies dysuria, hematuria or urinary frequency Musculoskeletal Musculoskeletal: Denies arthralgias or myalgias Integumentary Denies abscess or rash Neurologic Neurologic: Denies headache(s) or weakness Psychiatric Psychiatric: Denies anxiety or depression EXAM Physical Exam Const Vital Signs: 08/28/20 09:58 08/28/20 10:13 Temperature 97.2 F L Temperature Source Temporal Pulse Rate 91 Respiratory Rate 16 Respiratory Effort Normal Non-Labored Respiratory Pattern Normal Blood Pressure 145/86 H Blood Pressure Mean 105 Pulse Ox 96 Oxygen Delivery Method Room Air Positive well nourished General Appearance ED: NAD; Negative for pallor HEENT Reports normocephalic, head/scalp atraumatic and moist mucous membranes Eyes PERRL and EOMs intact bilaterally Neck no lymphadenopathy and supple Chest Wall inspection of chest normal and palpation of chest normal Resp normal respiratory effort and clear to auscultation bilaterally Auscultation: Negative for rales, rhonchi or wheezes Cardio regular rate and regular rhythm GI normal to inspection, nondistended, normoactive bowel sounds and non-distended Auscultation: normoactive bowel sounds Palpation: soft Narrative: Deferred Extremity normal to inspection General Extremety ED: Yes edema and tenderness General Extremity: edema Neuro oriented x3 and CN's II-XII intact bilaterally Sensorium / Orientation: alert Motor Exam: strength 5/5 throughout Psych mental status grossly normal Attitude: No agitated Skin no rashes or lesions noted and no wounds General Skin Exam: Negative for jaundice or pallor MDM MDM MDM Narrative Medical decision making narrative: Patient presenting with similar symptoms to his last 2 visits. He has had to complete lab work-ups as well as advanced imaging. He has no change in his symptoms. I spoke with his primary care physician who states that he is very noncompliant and does not come to office. She states she will restart his medication and try to get him into the office. I discussed this with the patient and he was amenable to this. I do not believe he needs another work-up from the ED. Patient stable for discharge at this [facility]. Impression: 1. Generalized weakness Discharge Plan Triage Chief Complaint: Weakness ED Provider: Yash Perez Dx/Rx/DC Orders Instructions: ED Weakness (Uncertain Cause) Prescriptions: No Action amlodipine 5 mg tablet 5 mg PO DAILY Qty: 90 RF: 0 aspirin 81 mg tablet,chewable 81 mg PO DAILY@0800 Qty: 90 RF: 0 losartan-hydrochlorothiazide 50-12.5 mg tablet 1 tab PO DAILY Qty: 90 RF: 0 metformin 500 mg tablet extended release 24 hr 500 mg PO BID Qty: 90 RF: 0 atorvastatin 40 mg tablet 40 mg PO QHS Qty: 90 RF: 0 Eye Allergy Relief 0.025-0.3 % drops 1 drp EACH EYE TID PRN (Reason: eye irritation) Qty: 15 RF: 0 loratadine [Claritin] 10 mg tablet 10 mg PO DAILY Qty: 30 RF: 0 Primary Care Provider: Sandra Barahona Referrals: Sandra Barahona MD [Primary Care Provider] - Disposition Disposition: Home, Self Care
== END 2020-08-28 10:39 | disposition home or self-care (01) ==
LOC: ED 10:33
PROVIDERS: Emergency Provider Student in an Organized Health Care Education/Training Program; PCP Internal Medicine
DX: R53.1 Weakness (principal); F32.9 Major depressive disorder, single episode, unspecified; E78.00 Pure hypercholesterolemia, unspecified; E11.9 Type 2 diabetes mellitus without complications; I10 Essential (primary) hypertension; Z79.82 Long term (current) use of aspirin; Z79.84 Long term (current) use of oral hypoglycemic drugs
CPT/HCPCS: 99282

== ENCOUNTER 2020-08-28 20:54 | Emergency (ER) | payer MEDICARE, BC, SELFPAY ==
[2020-08-28 17:34] VITALS: BMI 21.8
[2020-08-28 20:54] VITALS: BP 154/103; PULSE 89; RESP 15; TEMP 36.3; O2SAT 97; BMI 21.9
[2020-08-28 21:55] VITALS: BP 145/98
--- NOTE | 2020-08-28 22:24 | EX.ED.DYSGE1 ---
HPI History of Present Illness Chief Complaint: Weakness Informant: patient Narrative Narrative: 64-year-old male presents the emergency department with months of generalized weakness. He has been seen several times for this including today. Social work has been involved. He states that he has been evicted from his apartment for not paying rent. He reports that he wants somebody to help take care of him. He states that he was given a list of assisted living places that he has not explored. He has a car. He states that he gets a check monthly. He states he went to his family doctor yesterday and was given eyedrops for allergic conjunctivitis. He states that he is not feeling suicidal or homicidal. He states he just wants somebody to take care of him. [facility] Medical History Allergic conjunctivitis Blepharospasm Cataract Depression Homeless Hypercholesterolemia Hypertension Type 2 diabetes mellitus Home Medications loratadine [Claritin] 10 mg PO DAILY #30 tab 08/24/20 [Rx Last Taken Unknown] amlodipine 5 mg tablet 5 mg PO DAILY #90 tablet 08/28/20 [Rx Last Taken Unknown] aspirin 81 mg chewable tablet 81 mg PO DAILY@0800 #90 tablet 08/28/20 [Rx Last Taken Unknown] atorvastatin 40 mg tablet 40 mg PO QHS #90 tablet 08/28/20 [Rx Last Taken Unknown] famotidine 20 mg tablet 20 mg PO QHS #30 tab 08/28/20 [Rx Last Taken Unknown] losartan 50 mg-hydrochlorothiazide 12.5 mg tablet 1 tab PO DAILY #90 tablet 08/28/20 [Rx Last Taken Unknown] metformin 500 mg tablet,extended release 24 hr 500 mg PO BID #90 tablet 08/28/20 [Rx Last Taken Unknown] montelukast 10 mg tablet 10 mg PO QHS #30 tab 08/28/20 [Rx Last Taken Unknown] Allergy/AdvReac Type Severity Reaction Status Date / Time No Known Allergies Allergy Verified 08/28/20 17:33 Family History Sister Diabetes Type 1 Surgical History No history of previous surgery Social History Smoking Status: Never smoker alcohol intake: never substance use type: does not use what type of physical activity do you participate in: walking ROS ROS ED Constitutional Constitutional ED: Reports other Details: Generalized weakness ; Denies chills or weight loss Eyes Eyes: Denies change in vision or diplopia ENT ENT ED: Denies ear pain, rhinorrhea or sore throat Cardiovascular Cardiovascular: Denies chest pain, orthopnea, palpitations or racing heartbeat Respiratory/Chest Respiratory/Chest: Denies cough, dyspnea or orthopnea Gastrointestinal Gastrointestinal: Denies abdominal pain, diarrhea, nausea or vomiting Genitourinary Genitourinary ED: Denies dysuria, hematuria or urinary frequency Musculoskeletal Musculoskeletal: Denies arthralgias or myalgias Integumentary Denies abscess or rash Neurologic Neurologic: Denies headache(s) or weakness Psychiatric Psychiatric: Denies anxiety, depression, suicidal ideation or suicidal thoughts Endocrine Endocrinology: Denies polydipsia, polyphagia or polyuria Allergic/Immunologic Allergic/Immunologic ED: Denies mouth swelling, tongue swelling or urticaria EXAM Physical Exam Const Vital Signs: 08/28/20 20:54 08/28/20 21:55 Temperature 97.3 F L Temperature Source Temporal Pulse Rate 89 Respiratory Rate 15 Blood Pressure 154/103 H 145/98 H Blood Pressure Mean 120 113 Pulse Ox 97 Oxygen Delivery Method Room Air Positive well nourished and well developed General Appearance ED: well developed HEENT Reports normocephalic, head/scalp atraumatic and moist mucous membranes Eyes PERRL and EOMs intact bilaterally Eyes Narrative: Patient's conjunctiva is injected. Neck no lymphadenopathy, supple and no JVD Resp normal respiratory effort and clear to auscultation bilaterally Cardio regular rate, regular rhythm and no murmurs GI normal to inspection, nondistended, normoactive bowel sounds and non-tender Palpation: soft Back/Spine no CVA tenderness and normal ROM Extremity normal to inspection General Extremety ED: Negative for edema General Extremity: Negative for edema Neuro oriented x3 and CN's II-XII intact bilaterally Sensorium / Orientation: alert Motor Exam: strength 5/5 throughout Psych mental status grossly normal Mood & Affect: Negative for depressed or tearful Skin no rashes or lesions noted and no wounds MDM MDM MDM Narrative Medical decision making narrative: I reviewed the patient's prior visits. His blood work was rather unremarkable. Patient just generally feels weak. He is able to walk he is able to drive. His story is inconsistent. I spoke with our social worker school has visited with him multiple times. At this point I do not think I can solve his social situation in the middle of the night. We will contact Adult Protective Services again tomorrow. Discharge Plan Triage Chief Complaint: Weakness ED Provider: Jaxon Mccarthy Dx/Rx/DC Orders Clinical Impression: Generalized weakness, Homeless Instructions: ED Weakness (Uncertain Cause) Prescriptions: No Action loratadine [Claritin] 10 mg tablet 10 mg PO DAILY Qty: 30 RF: 0 amlodipine 5 mg tablet 5 mg PO DAILY Qty: 90 RF: 0 aspirin 81 mg tablet,chewable 81 mg PO DAILY@0800 Qty: 90 RF: 0 atorvastatin 40 mg tablet 40 mg PO QHS Qty: 90 RF: 0 losartan-hydrochlorothiazide 50-12.5 mg tablet 1 tab PO DAILY Qty: 90 RF: 0 metformin 500 mg tablet extended release 24 hr 500 mg PO BID Qty: 90 RF: 0 montelukast [Singulair] 10 mg tablet 10 mg PO QHS Qty: 30 RF: 1 famotidine 20 mg tablet 20 mg PO QHS Qty: 30 RF: 1 Primary Care Provider: Sandra Barahona Referrals: Sandra Barahona MD [Primary Care Provider] - As soon as possible Activity Restrictions/Additional Instructions: Our social work will contact Adult Protective Services in the morning. Disposition Disposition: Home, Self Care
== END 2020-08-28 22:35 | disposition home or self-care (01) ==
PROVIDERS: Emergency Provider Emergency Medicine; PCP Internal Medicine
DX: R53.1 Weakness (principal); Z59.0 Homelessness; H10.10 Acute atopic conjunctivitis, unspecified eye; E11.9 Type 2 diabetes mellitus without complications; E78.00 Pure hypercholesterolemia, unspecified; F32.9 Major depressive disorder, single episode, unspecified; G24.5 Blepharospasm; I10 Essential (primary) hypertension; Z79.82 Long term (current) use of aspirin; Z79.84 Long term (current) use of oral hypoglycemic drugs; Z79.899 Other long term (current) drug therapy
CPT/HCPCS: 99282

== ENCOUNTER 2020-08-29 04:07 | Emergency (ER) | payer MEDICARE, BC, SELFPAY ==
[2020-08-28 20:54] VITALS: BMI 21.9
[2020-08-29 04:09] VITALS: BP 156/96; PULSE 63; RESP 18; TEMP 36.6; O2SAT 100; BMI 25.1
--- NOTE | 2020-08-29 04:14 | RAD_ITS ---
STUDY: X-RAY CHEST REASON FOR EXAM: Male, 64 years old. Hypertension TECHNIQUE: Single AP portable view of the chest. COMPARISON: 08/26/2020 FINDINGS: The lungs are clear and expanded. There is no demonstrated pleural abnormality. Normal size heart. Normal mediastinum and dede. Normal visualized pulmonary arteries. Normal visualized aortic arch and descending thoracic aorta. Normal visualized thoracic spine. Normal visualized ribs, clavicles, and shoulders. There is no demonstrated abnormality of the visualized soft tissue structures of the upper abdomen. RAD/Chest 1 View (Portable) IMPRESSION: Normal x-ray examination of the chest. Electronically Signed: Kal Alvarez DO at 5:24 EDT Tel , Service support ,
--- NOTE | 2020-08-29 04:14 | EKG12_ITS ---
Test Reason : DYSRHYTHMIA Blood Pressure : / mmHG Vent. Rate : 076 BPM Atrial Rate : 076 BPM P-R Int : 146 ms QRS Dur : 142 ms QT Int : 442 ms P-R-T Axes : 046 -42 139 degrees QTc Int : 497 ms Normal sinus rhythm Left axis deviation Left bundle branch block Abnormal ECG Confirmed by ALICIA HAWLEY, DEVYN ([id number]), legal editor VILMA PALMA ([id number]) on 08/30/2020 10:15:28 AM Referred By: Confirmed By:DEVYN VARGAS MD
--- NOTE | 2020-08-29 04:14 | CT_ITS ---
STUDY: CT BRAIN WITHOUT CONTRAST REASON FOR EXAM: Male, 64 years old. Altered mental status RADIATION DOSAGE (If Supplied By Facility): CTDIvol = ( 44.99 ) mGy, DLP = ( 779.24 ) mGycm TECHNIQUE: Transaxial CT imaging of the brain was performed without administration of intravenous contrast material. Individualized dose optimization techniques were used for this CT. COMPARISON: 08/26/2020 FINDINGS: Normal soft tissue structures. Normal calvarium. There is mild cerebral atrophy with widening of the extra-axial spaces and ventricular dilatation. There are areas of decreased attenuation within the white matter tracts of the supratentorial brain, consistent with microvascular disease changes. Normal basal ganglia and thalami. Normal brainstem. There is mild cerebellar atrophy. There is no intracranial hemorrhage. There are no findings of an acute ischemic infarction. Stable prior lacunar infarct in the left basal ganglia. Normal visualized paranasal sinuses. CT/Brain/Head without Contrast IMPRESSION: Chronic involutional changes of the brain. No change from several days prior. Electronically Signed: Kal Alvarez DO at 5:41 EDT Tel , Service support ,
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
[2020-08-29 04:40] LABS: Absolute Lymphocyte Count 0.88 X10^3/uL (0.83-4.51); Basophil# 0.04 X10^3/uL; Basophil% 0.5 % (0-1); Eosinophil# 0.14 X10^3/uL; Eosinophils% 1.8 % (0-5); Hematocrit 43.3 % (40-54); Hemoglobin 14.4 g/dL (13.0-16.5); Lymphocyte # 0.88 X10^3/ul (0.83-4.51); Lymphocyte % 11.4 % (19-41); Mean Corp Hgb Conc 33.3 g/dL (32-36); Mean Corpuscular Hgb 29.7 pg (27.0-32.0); Mean Corpuscular Volume 89.3 fL (80-94); Mean Platelet Vol. 11.1 fl (6.2-12.0); Monocyte# 0.63 X10^3/uL; Monocyte% 8.2 % (0-10); NRBC Flagged by Analyzer 0 % (0-5); Platelet Count 207 K/mm3 (150-450); RBC Distribution Width CV 14.8 % (11.6-14.6); RBC Distribution Width SD 47.9 fl (35.1-43.9); Red Blood Count 4.85 M/mm3 (4.6-6.2); White Blood Count 7.7 K/mm3 (4.4-11.0)
[2020-08-29 05:04] LABS: AST(SGOT) 19 U/L (15-37); Alanine Aminotransfer ALT/SGPT 36 U/L (16-61); Albumin, Serum 3.7 g/dL (3.2-5.0); Alkaline Phosphatase 103 U/L (45-117); Anion Gap 6 (5-15); BUN 11 mg/dL (7-18); BUN/Creat Ratio 11.2 RATIO (10-20); Calcium,Total 8.3 mg/dL (8.5-10.1); Chloride 107 mmol/L (98-107); Creatinine, Serum 0.98 mg/dL (0.70-1.30); EST Glomerular Filtration Rate 81 mL/min (>60); Est Glom Filt Rate - Afr Amer 98 mL/min (>60); Estimated Creatinine Clearance 52.44 ml/min; Globulin 3.7 g/dL (2.2-4.2); Glucose 124 mg/dL (74-106); Lipase 311 U/L (73-393); Potassium 3.1 mmol/L (3.5-5.1); Protein, Total 7.4 g/dL (6.4-8.2); Sodium Level 141 mmol/L (136-145); Thyroid Stim Hormone (TSH) 3.84 uIU/mL (0.358-3.74); Troponin-I HS 15.6 pg/mL (3.0-78.5)
[2020-08-29 06:35] VITALS: RESP 18
[2020-08-29 06:38] LABS: Bacteria 0 SEEN /hpf (None Seen); Mucous, Urine 0 SEEN /hpf (<or=2+); Red Blood Cells-Urine 0 SEEN /hpf (0-5); Squamous Epithelial Cells - UA 0 SEEN /hpf (0-5); White Blood Cells 0 SEEN /hpf (0-5)
[2020-08-29 06:41] LABS: Color, Urine Yellow (Yellow); Glucose, Dipstick Normal (Normal); Ketone-Dipstick Negative (Negative); Leukocyte Esterase-Dipstick Negative /ul (Negative); Nitrite-Dipstick Negative (Negative); Occult Blood-Urine Negative /ul (Negative); Protein-Dipstick Negative (Negative); Urine Bilirubin Dipstick Negative (Negative); Urine Clarity Clear (Clear); Urine Urobilinogen Normal (Normal)
[2020-08-29 07:03] LABS: Amphetamine Urine VISTA NEGATIVE (<1000 ng/mL); Barbiturate Urine VISTA NEGATIVE (< 200 ng/mL); Benzodiazepine Urine VISTA NEGATIVE (< 200 ng/mL); Cocaine Urine VISTA NEGATIVE (< 300 ng/mL); Ecstacy Urine VISTA NEGATIVE (< 500 ng/mL); Methadone Urine VISTA NEGATIVE (< 300 ng/mL); PCP Urine VISTA NEGATIVE (< 25 ng/mL); THC Urine VISTA NEGATIVE (< 50 ng/mL); Vista UDS pH Range 6
--- NOTE | 2020-08-29 07:32 | ED.RN ---
Pt to be seen by [facility] case management at 10
[2020-08-29] MEDS: Potassium Chloride Oral Tablet 20 MEQ 40 MEQ PO (08:12)
--- NOTE | 2020-08-29 08:20 | ED.RN ---
Pt's LT eye noted to be red, swollen & some discharge. MD notified.
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
--- NOTE | 2020-08-29 10:45 | CM.ED ---
SOCIAL WORK Referral faxed and called to [facility]. Pending review at this time. Hernando Nguyen, WRAPPER STRIPPER, SHELL FISHERMAN
--- NOTE | 2020-08-29 11:51 | CM.ED ---
SOCIAL WORK Call to [facility] to verify referral received, spoke with Maggie. Referral under review at this time. Hernando Nguyen, CHILD CARE COOK, AIRCRAFT QUALITY CONTROL INSPECTOR
--- NOTE | 2020-08-29 12:15 | CM.ED ---
SOCIAL WORK Call from Maggie with [facility]. Patient accepted. Requesting copy of [place] [facility] and will call back with accepting information once [place] [facility] received. [place] [facility] faxed at this time. Hernando Nguyen, WOMEN'S GARMENT FITTER, PSYCHOTHERAPIST
--- NOTE | 2020-08-29 12:51 | CM.ED ---
SOCIAL WORK Patient accepted to [facility] by Dr. Levine to room 301A. Nurse to call report to [phone]. [facility] to set up transport. Staff updated. Plan: [facility] Nguyen, DIRECTOR HARDWARE, TURKISH RUBBER
--- NOTE | 2020-08-29 13:07 | ED.RN ---
Attempted to call [facility] to give report 3 times. Each time I was transferred to a line where no one answered. Will attempt to call report again.
--- NOTE | 2020-08-29 13:09 | NURSING ---
1252 CALLED [facility], ETA IS 30 MIN
[2020-08-29 13:45] VITALS: BP 176/78; PULSE 80; RESP 18; O2SAT 96
== END 2020-08-29 13:31 ==
PROVIDERS: Emergency Provider Emergency Medicine; PCP Internal Medicine
DX: F03.91 Unspecified dementia, unspecified severity, with behavioral disturbance (principal); E87.6 Hypokalemia; I44.7 Left bundle-branch block, unspecified; F32.9 Major depressive disorder, single episode, unspecified; E11.9 Type 2 diabetes mellitus without complications; E78.00 Pure hypercholesterolemia, unspecified; I10 Essential (primary) hypertension; G24.5 Blepharospasm; Z59.0 Homelessness; Z79.82 Long term (current) use of aspirin; Z79.84 Long term (current) use of oral hypoglycemic drugs; Z79.899 Other long term (current) drug therapy
CPT/HCPCS: 36415; 70450; 71045; 80053; 80307; 81001; 82077; 83690; 84443; 84484; 85025; 87426; 93005; 99285